=== PATIENT | female | born 1990 | race Caucasian/White ===

== ENCOUNTER → 2016-09-24 | Outpatient (CLI) | payer BC | END | disposition home or self-care (01) | LOC: C.PAPS 09:54 | PROVIDERS: ATTEND Obstetrics & Gynecology | DX: Z01.419 Encounter for gynecological examination (general) (routine) without abnormal findings (principal) ==

== ENCOUNTER 2018-10-27 00:54 | Inpatient (IN) ==
--- OUTSIDE RECORDS SUMMARY | 2018-10-27 01:01 | External Medical Summary | Continuity of Care Document ---
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) Palpitations (785.1) (R00.2) Decreased movement, antepartum (655.73) (O36.8190) Post term over 40 weeks (645.10) (O48.0) Encounter for supervision of normal prim igravida in third trimester, antepartum (V22.0) (Z34.03) Allergies and Adverse Reactions No Known Drug Allergies (Allergy) Medications Tylenol 500 MG CAPS Refills: 0 Vitamin TABS Refills: 0 Procedures Non-stress test Date: 22-Oct-2018 Immunizations Tdap (Adacel) On: 02-Aug-2018 16:39 Lot #: [id number], [employer] Family History Mother Family history of Hypertension (V17.49) Status: Active Grandmother Family history of Systemic Lupus Erythematosus Status: Activ e Family history of Hypertension (V17.49) Status: Active Family history of Heart Disease (V17.49) Status: Active Grandfather Family history of Lung Cancer (V16.1) Status: Active Grandfather Family history of Heart Disease (V17.49) Status: Active Plan of Treatment Planned Encounters Appointment; Surekha Villegas M.D. Start: 29-Oct-2018 14:30 Request Planned Observations Planned Goals not documented Results Non-stress test (Pending) Laboratory: In House 22-Oct-2018 14:33 Non-Stress Test Reactive Vital Signs 26-Oct-2018 13:48 Systolic 124 mm[Hg] Diastolic 82 mm[Hg] Weight 209.4 lb Height 65 in BSA Calculated 2.02 m2 BMI Calculated 34.85 kg/m2 22-Oct-2018 14:20 Systolic 110 mm[Hg] Diastolic 82 mm[Hg] Weight 205 lb Height 65 in BSA Calculated 2 m2 BMI Calculated 34.11 kg/m2 15-Oct-2018 15:12 Systolic 118 mm[Hg] Diastolic 86 mm[Hg] Weight 203.375 lb Height 65 in BSA Calculated 1.99 m2 BMI Calculated 33.84 kg/m2 05-Oct-2018 16:11 Systolic 120 mm[Hg] Diastolic 74 mm[Hg] Weight 201.25 lb Height 65 in BSA Calculated 1.98 m2 BMI Calculated 33.49 kg/m2 27-Sep-2018 15:59 Systolic 124 mm[Hg] Diastolic 78 mm[Hg] Weight 198.4 lb Height 65 in BSA Calculated 1.97 m2 BMI Calculated 33.02 kg/m2 Encounters Appointment; Juan David Arriaga M.D. 26-Oct-2018 13:40 Encounter Diagnosis: Problem not documented Appointment; Dixie Bo M.D. 22-Oct-2018 14:30 Encounter Diagnosis: Problem not documented Appointment; OB SC1, Nonstress Test 22-Oct-2018 14:00 Encounter Diagnosis: Problem not documented Appointment; Surekha Villegas M.D. 15-Oct-2018 15:10 Encounter Diagnosis: Problem not documented Appointment; Elida Leam M.D. 05-Oct-2018 16:10 Encounter Diagnosis: Problem not documented Appointment; Edita Marrero M.D. 27-Sep-2018 16:10 Encounter Diagnosis: Problem not documented Appointment; OB SC1, Nonstress Test 20-Sep-2018 13:15 Encounter Diagnosis: Problem not documented Appointment; Antoinette Wall M.D. 13-Sep-2018 16:20 Encounter Diagnosis: Problem not documented Appointment; Elida Lema M.D. 30-Aug-2018 15:50 Encounter Diagnosis: Problem not documented Appointment; Dixie Bo M.D. 17-Aug-2018 16:30 Encounter Diagnosis: Problem not documented Appointment; Sima Gage DO 02-Aug-2018 16:30 Encounter Diagnosis: Problem not documented Appointment; Dixie Bo M.D. 01-Jul-2018 16:30 Encounter Diagnosis: Problem not documented Appointment; Carlos Alberto Finn M.D. 03-Jun-2018 15:20 Encounter Diagnosis: Problem not documented Appointment; OBGYN SC2, Ultrasound 03-Jun-2018 14:30 Encounter Diagnosis: Problem not documented Appointment; Sima Gage DO 11-May-2018 15:20 Encounter Diagnosis: Problem not documented Appointment; Juan David Arriaga M.D. 03-May-2018 11:20 Encounter Diagnosis: Problem not documented Appointment; Carlos Alberto Finn M.D. 27-Apr-2018 14:20 Encounter Diagnosis: Problem not documented Appointment; OBGYN SC2, Ultrasound 27-Apr-2018 13:30 Encounter Diagnosis: Problem not documented Appointment; Sima Gage DO 13-Apr-2018 16:10 Encounter Diagnosis: Problem not documented Appointment; OB SC1, Procedure Rm 17-Mar-2018 15:30 Encounter Diagnosis: Problem not documented Appointment; Dixie Bo M.D. 17-Mar-2018 15:30 Encounter Diagnosis: Problem not documented Appointment; OB SC1, Nursing Station 10-Mar-2018 15:00 Encounter Diagnosis: Problem not documented Appointment; EMERGENCY MAN SC1, Nursing Station 14-Jan-2018 9:30 Encounter Diagnosis: Problem not documented Appointment; EMERGENCY MAN SC1, Nursing Station 17-Dec-2017 9:00 Encounter Diagnosis: Problem not documented Appointment; Amber Peralta M.D. 03-Dec-2017 13:30 Encounter Diagnosis: Problem not documented Appointment; Surekha Villegas M.D. 29-Oct-2018 14:30 Encounter Diagnosis: Problem not documented
[2018-10-27] MEDS ORDERED: OXYTOCIN 30 UNITS/500 ML BAG IV PRN ×3 (02:10→16:26)
[2018-10-27] MEDS ORDERED: LACTATED RINGER'S 1,000 ML IV PRN ×2 (02:10→11:03)
[2018-10-27] MEDS ORDERED: PENICILLIN G POTASSIUM 6 MU in DEXTROSE 5% 250 ML IV ONE (02:30)
[2018-10-27 02:44] LABS: Hematocrit (blood only) 34.6 % (37-47); Hemoglobin 11.6 g/dL (12.0-16.0); Mean Corpuscular Volume 83.4 fL (80-100); Mean Platelet Volume 10.2 fL (7.4-10.4); Platelet Count 232 K/uL (130-400); RDW Coefficient of Variation 14.9 % (11.5-14.5); Red Blood Count 4.15 M/uL (4.2-5.4); White Blood Count 16.62 K/uL (4.8-10.8)
[2018-10-27 02:55] LABS: Mean Corpuscular Hgb Conc 33.5 g/dL (32-36)
[2018-10-27] MEDS: PENICILLIN G POTASSIUM 3 MU in DEXTROSE 5% 100 ML IV SCH ×3 (06:46→14:26)
--- NOTE | 2018-10-27 07:13 | Labor Progress Brief Note ---
Date of Service October 27, 2018 Subjective Patient seen at 7am. Tolerating contraction pain, declines epidural. Assessment & Plan (1) Normal labor and delivery: Spontaneous labor, post term . GBS pos - PCN x2 now given. SROM and labor progressing without augmentation and patient declines anesthesia. Anticipate . Present on Admission?: Yes Physical Exam Physical Exam: FHT Cat 1 [place] Q2-4m Per RN: SROM for clear recently occurred during emesis. Cervix 8/100/0. Results & Data Vital Signs (Past 12 Hours) Vital Signs Temp Pulse Resp BP 10/27/18 07:00 36.8 C 18 10/27/18 03:31 36.8 C 92 H 16 137/88 10/27/18 01:39 99 H 130/91 10/27/18 01:16 36.6 C 85 18 140/88 10/27/18 01:08 36.6 C 85 18 140/88
--- NOTE | 2018-10-27 11:49 | Obstetrical Progress Note ---
Date of Service October 27, 2018 Subjective Patient had complained of right calf soreness this morning. A venous doppler shows a superficial thrombosis - 4cm in size & not near the deep venous system. Patient states she has varicose veins present prior to . Both parents have varicose veins and her mother had been treated for a DVT with coumadin in the past. Apparently there is no genetic source for the DVT. Review of Systems Review of Systems: All systems reviewed & are unremarkable except as noted in HPI & below Physical Exam Musculoskeletal: tender 2 cm mass in medial calf - no obvious redness in the area. (+) Tammy's sign Results & Data Vital Signs (Past 12 Hours) Vital Signs Temp Pulse Resp BP 10/27/18 11:12 98.4 F 18 10/27/18 11:11 97 H 147/93 H 10/27/18 09:07 98.4 F 18 10/27/18 07:00 98.2 F 18 10/27/18 03:31 98.2 F 92 H 16 137/88 10/27/18 01:39 99 H 130/91 10/27/18 01:16 97.9 F 85 18 140/88 10/27/18 01:08 97.9 F 85 18 140/88
[2018-10-27] MEDS: LACTATED RINGER'S 1,000 ML IV SCH ×2 (11:55→16:45)
[2018-10-27] MEDS ORDERED: ACETAMINOPHEN 325 MG TAB PO PRN (16:26)
[2018-10-27] MEDS ORDERED: HYDROCORTISONE ACETATE 25 MG SUPP PR PRN (16:26)
[2018-10-27] MEDS ORDERED: BENZOCAINE 20% AER SPR 82.5 GM CAN EXT PRN (16:26)
[2018-10-27] MEDS ORDERED: DIPHTHERIA/TETANUS/PERTUSSIS 0.5 ML SYR/VIAL IM ONE (16:26)
[2018-10-27] MEDS ORDERED: SUPERCREAM 0.870% 15 GM JAR EXT PRN (16:26)
[2018-10-27] MEDS ORDERED: OXYTOCIN 10 UNITS/ML VIAL IM ONE (16:41)
[2018-10-27] MEDS: IBUPROFEN 600 MG TAB PO PRN (18:16)
[2018-10-27] MEDS: DOCUSATE SODIUM 100 MG CAP PO SCH (20:57)
--- NOTE | 2018-10-27 23:22 | Delivery Summary ---
DATE OF OPERATION: 10/27/2018 DATE OF DELIVERY: 10/27/2018 The patient is a 27-year-old G1, P0 white female who presented in labor spontaneously. Membranes ruptured for clear fluid. She is Group B strep positive and received 3 doses of penicillin prior to delivery. She required Pitocin augmentation after arresting at approximately 8 cm dilated. She progressed to full dilation and pushed effectively over a very small midline episiotomy for delivery of a viable male . Mouth and nasopharynx were suctioned on delivery of the head. The rest of the delivered easily and was placed on the mother's abdomen for further attention and drying. There was spontaneous crying and infant was moving all 4 limbs vigorously. The cord was then clamped and cut after 1 minute and after the cord had stopped pulsing. The placenta was then expressed intact with 3-vessel cord. A second degree perineal laceration was repaired with 3-0 chromic in the usual fashion. Estimated blood loss was 350 mL. Mother and were doing well after delivery. bleeding was controlled with dilute Pitocin. I attest to the content of the Intraoperative Record and any orders documented therein. Any exception s are noted below.
--- NOTE | 2018-10-28 06:56 | Obstetrical Progress Note ---
Date of Service October 28, 2018 Assessment & Plan (1) Status post vaginal delivery: Patient is a 27 year old PPD 1 s/p -Vital signs WNL bp 106/66 T36.5, -Hemoglobin was 11.6 on admission. no si/sx of anemia. -Pt is doing clinically well -Continue to encourage ambulation as tolerated, Monitor and control pain with motrin prn, Continue diet as tolerated. -Continue to support and encourage breast feeding -Routine care Supervising Physician Co-Signing Physician Notes Resident Physician Supervision Note: I interviewed and examined the patient. Discussed with Dr. Deng Brasher and lennox oswald with findings and plan as documented in the note. Any exceptions or clarifications are listed here: [None] Documented By: Antoinette Wall MD, FACOG Subjective Patient siting up in bed with baby in her arms and dad across the room resting on the chair bed. Patient did well overnight, reports she is starting to feel sore muscles. Patient is tolerating her diet, ambulating, passing gas and voiding, still no bm. Reports moderate lochia. Denies H/A, chest pain, palpitations and uti syx. Answered all questions, no concerns at present, pain is well controlled Physical Exam Physical Exam: Constitutional: WD/WN, vitals as above no acute distress Eyes: normal visual gordon by confrontation Neck: normal visual inspection Respiratory: normal respiratory effort, lungs clear to auscultation Cardiovascular: RRR, no murmur, no edema Heart Sounds: normal S1 and normal S2 Extremities: no calf tenderness Gastrointestinal (Abdomen): Uterus firm and below the umbilicus Results & Data Vital Signs (Past 12 Hours) Vital Signs Temp Pulse Resp BP Pulse Ox 10/28/18 04:35 36.5 C 94 H 18 106/66 10/27/18 23:55 36.8 C 110 H 18 121/65 10/27/18 20:30 36.4 C L 92 H 20 96/70 L 98 Medications Administered Current Inpatient Medications Acetaminophen (Tylenol) 650 mg PO Q6H PRN PRN Reason: Pain/ANDRE/Fever Stop: 11/26/18 16:25 Last Admin: 10/27/18 21:23 Dose: 650 mg Documented by: Benzocaine (Dermoplast Pain Relieving [place]) 1 appln EXT PRN PRN PRN Reason: Perineal Discomfort Stop: 11/26/18 16:25 Bisacodyl (Dulcolax) 5 mg PO 2000 [facility] Stop: 10/28/18 20:01 Bisacodyl (Dulcolax) 10 mg NH DAILY PRN PRN Reason: No BM on 2nd post- day Stop: 11/28/18 08:59 Cocaine HCl (Supercream 0.870%) 1 gm EXT BID PRN PRN Reason: Hemorrhoidal Inflammation Stop: 11/10/18 16:25 Docusate Sodium (Colace) 100 mg PO BID [facility] Stop: 11/26/18 20:59 Last Admin: 10/27/18 20:57 Dose: Not Given Documented by: Hydrocortisone (Anusol Hc) 25 mg [place] BID PRN PRN Reason: Hemorrhoidal Inflammation Stop: 11/26/18 16:25 Lactated Ringer's (Lr) 1,000 mls @ 125 mls/hr IV .Q8H [facility] Stop: 10/29/18 02:14 Last Admin: 10/27/18 16:45 Dose: Not Given Documented by: Oxytocin (Pitocin) 30 units in 500 mls @ 333.333 mls/hr IV .Q1H30M PRN; Protocol PRN Reason: Bleeding Control Stop: 11/26/18 02:09 Lactated Ringer's (Lr) 1,000 mls @ 999 mls/hr IV .Q1H1M PRN PRN Reason: Pre-Anesthesia Stop: 11/26/18 02:09 Last Infusion: 10/27/18 08:10 Dose: 0 mls/hr Documented by: Oxytocin (Pitocin) 30 units in 500 mls @ 333 mls/hr IV .Q1H31M PRN; Protocol PRN Reason: Labor Induction/Augmentation Stop: 10/29/18 11:02 Last Titration: 10/27/18 18:52 Dose: Infused Documented by: Lactated Ringer's (Lr) 1,000 mls @ 999 mls/hr IV .Q1H1M PRN PRN Reason: Tachysystole Stop: 10/29/18 11:02 Oxytocin (Pitocin) 30 units in 500 mls @ 333.333 mls/hr IV .Q1H30M PRN; Protocol PRN Reason: Bleeding Control Stop: 11/26/18 16:25 Ibuprofen (Motrin) 600 mg PO Q4H PRN PRN Reason: Pain/ANDRE/Cramping/Fever Stop: 11/26/18 16:25 Last Admin: 10/27/18 18:16 Dose: 600 mg Documented by: Pham Multivit/Pope/Iron/Folic Ac ( Vitamin) [facility] Stop: 11/27/18 08:59 Resident Activity Tracking Resident Involvement: Resident Care Provided Care Provided: Adult Hospital Medicine
[2018-10-28 07:31] LABS: Hematocrit (blood only) 25.6 % (37-47); Hemoglobin 8.7 g/dL (12.0-16.0); Mean Corpuscular Volume 81.8 fL (80-100); Mean Platelet Volume 9.6 fL (7.4-10.4); Platelet Count 224 K/uL (130-400); RDW Coefficient of Variation 15.4 % (11.5-14.5); RDW Standard Deviation 44.8 fL (36.4-46.3); Red Blood Count 3.13 M/uL (4.2-5.4); White Blood Count 22.53 K/uL (4.8-10.8)
[2018-10-28] MEDS: DOCUSATE SODIUM 100 MG CAP PO SCH ×2 (08:31→20:07)
[2018-10-28] MEDS: PRENATAL VITAMIN 1 TAB PO SCH (08:31)
[2018-10-28] MEDS: IBUPROFEN 600 MG TAB PO PRN ×2 (10:32→23:51)
[2018-10-28] MEDS ORDERED: BISACODYL 5 MG TABEC PO SCH (20:00)
[2018-10-29 06:43] LABS: Hematocrit (blood only) 24.7 % (37-47); Hemoglobin 8.1 g/dL (12.0-16.0)
--- NOTE | 2018-10-29 07:07 | Obstetrical Progress Note ---
Date of Service October 29, 2018 Assessment & Plan (1) Status post vaginal delivery: Patient is a 27 year old PPD 2 s/p -Vital signs WNL bp 121/71 T36.8, -Hemoglobin is 8.7 on ppd1 down from 11.6 on admission. no si/sx of anemia. -Pt is doing clinically well -Continue to encourage ambulation as tolerated, Monitor and control pain with motrin prn, Continue diet as tolerated. -Continue to support and encourage breast feeding -Counseled patient on discharge instructions including Vaginal bleeding, fevers, followup, lifting restrictions, breast feeding, vitamins, and nothing in the vagina for 6 weeks. Pt was agreeable -Plan for d/c today Supervising Physician Co-Signing Physician Notes Resident Physician Supervision Note: I was present with Dr. Brasher during the history and exam. I discussed the case with the resident and agree with the findings and plan as documented in the note. Any exceptions or clarifications are listed here: Patient requesting d/c, instructions given. F/U in 6 weeks Documented By: Carlos Alberto Finn Jr, MD, FACOG Subjective Pt sitting up in bed with dad sleeping in the chair across the room. no acute events overnight. Patient is tolerating her diet, ambulating, passing gas and voiding, positive bm some diarrhea. Reports moderate lochia. Denies H/A, chest pain, palpitations and uti syx. Answered all questions, no concerns at present, pain is well controlled Physical Exam Physical Exam: Constitutional: WD/WN, vitals as above no acute distress Eyes: normal visual gordon by confrontation Neck: normal visual inspection Respiratory: normal respiratory effort, lungs clear to auscultation Cardiovascular: RRR, no murmur, no edema Heart Sounds: normal S1 and normal S2 Extremities: no calf tenderness Gastrointestinal (Abdomen): Uterus firm and below the umbilicus Results & Data Vital Signs (Past 12 Hours) Vital Signs Temp Pulse Resp BP Pulse Ox 10/28/18 23:30 36.8 C 80 18 121/71 96 Resident Activity Tracking Resident Involvement: Resident Care Provided Care Provided: Adult Hospital Medicine
[2018-10-29] MEDS: DOCUSATE SODIUM 100 MG CAP PO SCH (08:11)
[2018-10-29] MEDS: PRENATAL VITAMIN 1 TAB PO SCH (08:11)
[2018-10-29] MEDS ORDERED: BISACODYL 10 MG SUPP PR PRN (09:00)
== END 2018-10-29 15:15 | disposition home or self-care (01) | DRG 807 ==
LOC: OPB 00:54 → 4S1 00:59 → 4S2 20:25

== ENCOUNTER 2020-10-15 09:05 | Inpatient (IN) ==
[2020-10-15] MEDS ORDERED: LACTATED RINGER'S 1,000 ML IV PRN (09:26)
[2020-10-15] MEDS ORDERED: OXYTOCIN 30 UNITS/500 ML BAG IV PRN ×2 (09:26→18:38)
[2020-10-15 09:47] LABS: Hematocrit (blood only) 39.2 % (37-47); Hemoglobin 13.2 g/dL (12.0-16.0); Mean Corpuscular Hemoglobin 29.5 pg (25-34); Mean Corpuscular Hgb Conc 33.7 g/dL (32-36); Mean Corpuscular Volume 87.5 fL (80-100); Mean Platelet Volume 9.9 fL (7.4-10.4); Platelet Count 214 K/uL (130-400); RDW Coefficient of Variation 13.8 % (11.5-14.5); Red Blood Count 4.48 M/uL (4.2-5.4); White Blood Count 13.08 K/uL (4.8-10.8)
[2020-10-15] MEDS: miSOPROStoL 25 MCG TAB PV SCH ×2 (09:51→15:42)
--- NOTE | 2020-10-15 10:07 | History & Physical Report ---
Date of Service October 15, 2020 Assessment & Plan (1) Encounter for supervision of normal in multigravida: Admit to L&D. Labs, EFM/toco, IV. Covid swab per L&D admission protocol. Discussed induction plans - placed 25mcg of cytotec vaginally. Membrane sweep prior to placement per patient request. Admission and Anticipated Discharge Date Admission Date: October 15, 2020 History of Present Illness Chief Complaint: IOL Primary Care Provider: Isrrael Castro 29yo @ 40 06/28, presents for IOL with Dr Arriaga. complications: Flu shot given 04/05/20 SB Right club Foot (MFM) apt [facility] MFM 07/04/20 u/s, 07/10/20 telehealth visit Borderline renal dilatation. Rescan at 30 weeks *MFM aware - 5.6mm at most at 30wk. Male fetus. *rescan @ 32wks and 36wks. *if greater than 7mm need to discuss with MFM *Left renal pelvis 12.4 @ 36wks. MFM recs weekly DVP's Per MFM, patient may deliver here, will need pediatric urology consult after delivery consult request sent to Peds urology at [facility] *Peds hospitalist ok with delivery at [facility] Induction 10/[address] Arriaga Allergies Allergy/AdvReac Type Severity Reaction Status Date / Time No Known Drug Allergies Allergy no Verified 10/15/20 09:22 allergies Home Medications Medication Instructions Recorded Confirmed Type acetaminophen 500 mg capsule 650 mg PO Q6 PRN 03/02/20 10/15/20 History prenat.vits,lorena,[id number] 1 tab PO DAILY 03/02/20 10/15/20 History Patient History Medical History History of ovarian cyst ruptured- no surgery Palpitations cardiac eval 04/28/2018; echo- small PFO Surgical History History of mandibular surgery Family History Grandmother (Maternal) Heart disease CHF; pacemaker Hypertension Systemic lupus erythematosus Grandfather (Paternal) Heart disease h/o CAD, CABG, in 60's when chopping wood Mother Hypertension Grandfather (Maternal) Lung cancer Father Heart disease NSTEMI, age 62, 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[employer]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 [employer] of [employer] Prostate cancer Social History (Updated 03/06/20 @ 13:42 by Tran Mora) Smoking Status: Never smoker Second Hand Exposure: No; Hx Alcohol Use: No Hx Substance Use: No Preferred Language: Sami Communication Ability: Effective Gear Technician Required: No Beliefs That Will Affect Care: None marital status: marital status details: Bc (32 yo)- [phone] Current Living Situation: Spouse Current Living Situation Comment: Spouse and son, 1 dog current occupational status: employed 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- [employer] Other Information That Helps Us Care for You: No Feels Safe at Home: Yes Safety Concerns: Feels Safe At This Time Assistive Devices: None Review of Systems All systems reviewed & are unremarkable except as noted in HPI & below Physical Exam Physical Exam: SVE 2/80/-3 FHT Cat 1 [place] rare Constitutional: WD/WN, vitals as above Respiratory: normal respiratory effort, lungs clear to auscultation no respiratory distress Cardiovascular: Rate/Rhythm: regular rate and regular rhythm Gastrointestinal (Abdomen): Inspection/Auscultation: abdomen normal to inspection Percussion/Palpation: abdomen soft; abdomen nontender Gravid. No s/s chorio or abruption. Skin: no rashes, warm and dry Psychiatric: A+Ox3, euthymic affect Results & Data ([facility]) Vital Signs (Past 12 Hours) Vital Signs Temp Pulse Resp BP 10/15/20 09:19 36.4 C L 116 H 18 123/74 10/15/20 09:12 116 H 123/74 Coding Level of Care Code None Diagnoses Encounter for supervision of normal in multigravida Z34.80
--- NOTE | 2020-10-15 13:58 | Labor Progress Brief Note ---
Date of Service October 15, 2020 Subjective Reason For Note: Routine Evaluation Assessment & Plan (1) Encounter for supervision of normal in multigravida: 29yo at 40.1 weeks GA. IOL 1. Fetus: Cat 1 2. Labor: s/p Cytotec. AROM clr. 3. GBS: Negative Admission and Anticipated Discharge Date Admission Date: October 15, 2020 Physical Exam Genitourinary: Manual OB Exam: + cervical dilation 3 cm, + cervical effacement 80%, + station -2 and + amniotic fluid (AROM) clear OB Exam Monitor Tracing: + external FHT monitor used, + external uterine monitor used, + category I and + normal FHT variability; no early decelerations present, no late decelerations present and no variable decelerations Results & Data ([facility]) Vital Signs (Past 12 Hours) Vital Signs Temp Pulse Resp BP 10/15/20 10:59 36.6 C 88 18 128/71 10/15/20 09:19 36.4 C L 116 H 18 123/74 10/15/20 09:12 116 H 123/74 Coding Level of Care Code None Diagnoses Encounter for supervision of normal in multigravida Z34.80
[2020-10-15] MEDS ORDERED: LIDOCAINE HCL 1% 20 ML VIAL ONE (17:19)
[2020-10-15] MEDS ORDERED: miSOPROStoL 200 MCG TAB ONE (18:31)
[2020-10-15] MEDS ORDERED: IBUPROFEN 600 MG TAB PO PRN (18:38)
[2020-10-15] MEDS ORDERED: SUPERCREAM 0.870% 15 GM JAR EXT PRN (18:38)
[2020-10-15] MEDS ORDERED: BENZOCAINE 20% AER SPR 82.5 GM CAN EXT PRN (18:38)
[2020-10-15] MEDS ORDERED: DIPHTHERIA/TETANUS/PERTUSSIS 0.5 ML SYR/VIAL IM ONE (18:38)
[2020-10-15] MEDS ORDERED: bisacodyL 10 MG SUPP PR PRN (18:38)
[2020-10-15] MEDS ORDERED: HYDROCORTISONE ACETATE 25 MG SUPP PR PRN (18:38)
[2020-10-15] MEDS ORDERED: ACETAMINOPHEN 325 MG TAB PO PRN (18:38)
[2020-10-15] MEDS ORDERED: miSOPROStoL 100 MCG TAB PR ONE (18:38)
[2020-10-15] MEDS ORDERED: LACTATED RINGER'S 1,000 ML IV SCH (18:38)
[2020-10-15] MEDS: DOCUSATE SODIUM 100 MG CAP PO SCH (21:57)
--- NOTE | 2020-10-16 04:53 | Delivery Summary ---
DATE OF OPERATION: 10/15/2020 PROCEDURE: Normal spontaneous vaginal delivery with second-degree perineal and bilateral labial laceration repair. SURGEON: Juan David Arriaga MD OPERATIONS FORESTER: Nancy Mead, PGY-1. PREOPERATIVE DIAGNOSES: 1. Single intrauterine at 40 weeks 1 day gestational age. 2. Severe left pyelectasis. 3. clubfoot. POSTOPERATIVE DIAGNOSES: 1. Single intrauterine at 40 weeks 1 day gestational age. 2. Severe left pyelectasis. 3. clubfoot. 4. Status post procedure. ESTIMATED BLOOD LOSS: 400 mL. DRAINS: None. FLUIDS: Continuous lactated Ringer. URINE OUTPUT: Not measured. COMPLICATIONS: None. FINDINGS: Viable male with weight pending and Apgars of 8 and 9 at 1 and 5 minutes respectively. INDICATIONS FOR PROCEDURE: The patient presented for induction of labor at 40 weeks 1 day gestational age for severe pyelectasis. At presentation, she was found to be 2 cm dilated, 80% effaced, -2 station. She was started on a single dose of Cytotec. After Cytotec, she underwent artificial rupture of membranes for clear fluid. She progressed in labor quickly to complete-complete +2 and pushed for approximately 15-20 minutes to achieve delivery. DESCRIPTION OF PROCEDURE: The patient progressed to 10 cm dilated, 100% effaced, +2 station, pushed over intact perineum with epidural anesthesia and delivered a viable male infant with weight and Apgars as noted above. Head of delivered in MARCELINO position, rest into right transverse. No nuchal cord was noted. Body and shoulders quickly followed. was noted to be vigorous soon after delivery. A 1-minute delayed cord clamping was initiated, after which the cord was double clamped and cut. Cord blood was obtained. Attention was then turned to delivery of the placenta, which was delivered intact, 3-vessel cord, gentle cord traction. On inspection of the perineum, vagina, and cervix, there was noted to be a small second-degree perineal laceration and bilateral labial lacerations that extended from the second-degree laceration. The perineal laceration was repaired with 3-0 Vicryl and continuous stitch, traditional crown stitch. The bilateral labial lacerations were repaired down towards the level of the second-degree laceration with 3-0 Vicryl in an interrupted stitch. Needle, sponge and instrument counts were correct at the completion of the case. Both mother and were stable in the immediate post-delivery period. I attest to the content of the Intraoperative Record and any orders documented therein. Any exception s are noted below.
[2020-10-16 06:20] LABS: Hematocrit (blood only) 35.9 % (37-47); Hemoglobin 12.1 g/dL (12.0-16.0); Mean Corpuscular Hemoglobin 29.5 pg (25-34); Mean Corpuscular Hgb Conc 33.7 g/dL (32-36); Mean Corpuscular Volume 87.6 fL (80-100); Platelet Count 195 K/uL (130-400); RDW Coefficient of Variation 13.9 % (11.5-14.5); RDW Standard Deviation 43.7 fL (36.4-46.3); White Blood Count 17.43 K/uL (4.8-10.8)
[2020-10-16] MEDS ORDERED: PRENATAL VITAMIN 1 TAB PO SCH (08:00)
--- NOTE | 2020-10-16 08:07 | Obstetrical Progress Note ---
Date of Service <Diego Minor MD - Last Filed: 10/16/20 08:07> October 16, 2020 Assessment & Plan <Diego Minor MD - Last Filed: 10/16/20 08:07> (1) Encounter for supervision of normal in multigravida: A/P: Daysi Truong is a 29 y/o female on PPD#1 following at 40+1 weeks. * Patient feels well today; eating well, voiding well, ambulating well * Pain well-controlled with ibuprofen 600mg q4h prn * PNL: Rh neg, RI, GBS neg, COVID neg * Routine care: OOB, ambulation, diet progression as tolerated * After discharge, will have six-week follow-up with Dr. Arriaga Subjective <Diego Minor MD - Last Filed: 10/16/20 08:07> Daysi Truong is a 29 y/o female on PPD#1 following at 40+1 weeks. This morning she reports feeling well overall. Reports mild, 2/10 crampy abdominal pain well-managed on analgesics. Tolerating PO intake without nausea or vomiting. Patient has been able to ambulate without lightheadedness or dizziness. Reports voiding well without difficulty. Lochia continues, though with some improvement this morning. Currently . Review of Systems Denies fever, chills, CP, SOB, cough, breast pain, dysuria, leg pain, leg swelling, headache, and changes in vision. Physical Exam <Diego Minor MD - Last Filed: 10/16/20 08:07> General: alert, oriented, no acute distress Cardiac: regular rate and rhythm, no murmurs appreciated Respiratory: lungs clear to auscultation bilaterally a/p, no wheezes/rales/rhonchi, no increased work of breathing, symmetrical chest rise, no respiratory distress Abdomen: soft, minimally tender, nondistended, bowel sounds present Uterus: uterine fundus firm, palpable 3 cm below umbilicus Lower extremities: no lower extremity edema or swelling, no deep calf pain, Tammy's negative bilaterally Results & Data ([facility]) <Diego Minor MD - Last Filed: 10/16/20 08:07> Vital Signs (Past 12 Hours) Vital Signs Temp Pulse Pulse Resp BP BP Pulse Ox 10/16/20 08:00 36.6 C 94 H 18 115/80 96 10/16/20 03:40 36.7 C 87 18 108/70 10/16/20 00:20 36.9 C 103 H 18 118/74 10/15/20 21:30 36.4 C L 99 H 18 127/78 10/15/20 20:55 37.1 C 10/15/20 20:44 107 H 141/81 H 10/15/20 20:29 125 H 18 135/71 10/15/20 20:14 121 H 132/66 <Juan David Arriaga MD - Last Filed: 10/16/20 08:17> Co-Signing Physician Notes Patient seen and evaluated and agree with the above findings and plan. Doing well. Stable for discharge. Resident Activity Tracking <Diego Minor MD - Last Filed: 10/16/20 08:07> Resident Involvement: Resident Care Provided Care Provided: OB Delivery
[2020-10-16] MEDS: DOCUSATE SODIUM 100 MG CAP PO SCH (08:48)
[2020-10-16] MEDS ORDERED: NON-FORMULARY MEDICATION (Prenat.Vits,Cal,Min-Iron-Folic tablet) PO SCH (09:00)
[2020-10-16] MEDS ORDERED: bisacodyL 5 MG TABEC PO SCH (20:00)
== END 2020-10-16 19:35 | disposition home or self-care (01) | DRG 807 ==
LOC: 4S1 09:05 → 4S2 21:21

== ENCOUNTER 2021-06-30 10:54 | Inpatient (IN) ==
[2021-06-30] MEDS ORDERED: METOCLOPRAMIDE HCL INJ 5 MG/ML 2 ML VIAL IV ONE (11:16)
[2021-06-30 11:29] LABS: Basophils # (auto) 0.06 K/uL (0-0.2); Eosinophils # (auto) 0.22 K/uL (0-0.5); Eosinophils % (auto) 3.7 %; Hematocrit (blood only) 38.7 % (37-47); Hemoglobin 12.8 g/dL (12.0-16.0); Lymphocytes # (auto) 2.53 K/uL (1.2-3.4); Mean Corpuscular Hemoglobin 29.1 pg (25-34); Mean Corpuscular Hgb Conc 33.1 g/dL (32-36); Monocytes # (auto) 0.49 K/uL (0.11-0.59); Monocytes % (auto) 8.3 %; Neutrophils # (auto) 2.58 K/uL (1.4-6.5); Platelet Count 230 K/uL (130-400); RDW Coefficient of Variation 12.5 % (11.5-14.5); RDW Standard Deviation 40.3 fL (36.4-46.3); White Blood Count 5.88 K/uL (4.8-10.8)
[2021-06-30 11:46] LABS: Alanine Aminotransferase 16 (12-78); Albumin Level 3.8 gm/dl (3.4-5.0); Aspartate Aminotransferase 13 U/L (15-37); BUN Creatinine Ratio 17.5 (10-20); Blood Urea Nitrogen 11 mg/dl (7-18); Calcium 8.9 mg/dl (8.5-10.1); Carbon Dioxide 25 mmol/L (21-32); Chloride 106 mmol/L (98-107); Creatinine Clr Calc Pharmacy 127.7 ml/min; Est GFR (African American) 138.8 ml/min; Est GFR (Non-African American) 119.7 ml/min; Glucose 84 mg/dl (70-99); Magnesium 1.9 mg/dl (1.8-2.4); Potassium 4.3 mmol/L (3.5-5.1); Sodium 139 mmol/L (136-145)
[2021-06-30 11:56] LABS: Albumin Globulin Ratio 1.2 (0.9-2); Alkaline Phosphatase 88 U/L (45-117); Bilirubin,Total 0.5 mg/dl (0.2-1); Globulin 3.3 gm/dl (2.5-4.0); Total Protein 7.1 gm/dl (6.4-8.2); Troponin I < 0.015 ng/ml (0-0.045)
--- NOTE | 2021-06-30 12:25 | Magnetic Resonance Report ---
Brain MRI WITHOUT CONTRAST HISTORY: transient aphasia, left numbness/weakness TECHNIQUE: Multiplanar multisequence MRI of the brain was performed without the use of contrast. COMPARISON STUDY: None. FINDINGS: There is a small foci of restricted diffusion seen within the high convexity right frontal lobe on images 19 and 20 measuring 9 mm. This is consistent with a small acute infarct. The midline s tructures are intact. There is no mass, hematoma, midline shift. The major vascular flow-voids at the skull base are well-maintained. The orbits are unremarkable. Small retention cyst within the right s phenoid sinus and left maxillary sinus. The mastoid air cells are clear. IMPRESSION: A 9 mm focus of restricted diffusion within the right high convexity consistent with a small acute in farct. ACT 112: Negative or not required by law. Electronically signed by: Jayesh Parra M.D. 06/30/2021 12:24 PM
--- NOTE | 2021-06-30 12:27 | Magnetic Resonance Report ---
Brain MRA HISTORY: Transient aphasia, left numb/weak TECHNIQUE: 3-D [id number] MRA of the brain was performed without contrast. COMPARISON STUDY: None. FINDINGS: Visualized intracranial internal carotid arteries, distal vertebral arteries, and basilar a rtery are widely patent. There is no significant stenosis, occlusion, or aneurysm seen within the patri[place] ateral ACAs, MCAs, or morgue technician. IMPRESSION: No significant stenosis, occlusion, or aneurysm within the [place] of [place]. ACT 112: Negative or not required by law. Electronically signed by: Jayesh Parra M.D. 06/30/2021 12:25 PM
[2021-06-30] MEDS ORDERED: ASPIRIN 81 MG CHEW PO STA (12:57)
--- NOTE | 2021-06-30 13:18 | History & Physical Report ---
Date of Service June 30, 2021 Assessment & Plan (1) Small vessel cerebrovascular accident (CVA): Plan: This is a 30yo F with PMH of a small PFO who presents with sudden onset left sided weakness and speech abnormality starting around 10AM today and was found to have small acute infarct in the right high frontal convexity. Developed LUE weakness, dysarthria this morning that has since fully resolved. Brain MRI confirms a small acute infarct in the right high frontal convexity Head/neck MRA with no acute restrictions in the head vascular on MRA Given aspirin in ED Vital signs stable, labs unremarkable, covid PCR negative, ECG with SR with sinus arrhythmia, no acute ischemic changes Pending work up: BLE venous dopplers to r/o DVTs, hypercoagulability panel, TTE with bubble study Discussed with neuro - Dr. Iyer recommends dual antiplatelet therapy tomorrow, SQ heparin for VTE, no need for CT head wo con at this time Discussed with cards due to history of small PFO on previous echo - Dr. Sal recommends ongoing telemetry, plan for WHIT, will make NPO @ [facility] Lipid panel, a1c in AM, PT/OT/speech evaluations per protocol DVT Ppx: SQ heparin Code status: FULL PCP: Matthew (seen by Rayna on patient request) Dispo: Admitted to PCU Patient seen in collaboration with Dr. Storey. Please see addendum. History of Present Illness Chief Complaint: stroke like sx Primary Care Provider: Isrrael Castro This is a 30yo F with PMH of a small PFO who presents with sudden onset left sided weakness and speech abnormality starting around 10AM today. Patient woke in normal state of health and was talking on the phone when she developed numbness and weakness in left arm and dropped her cell phone out of left hand. Also endorses mild left leg weakness at this time as well as difficulty getting her words out and and a small left facial droop. Speech and facial droop resolved after one minute per and left sided weakness improved but continued to have intermittent numbness of LUE over the next 20 minutes. brought patient to ED for further evaluation. No issues ambulating to car or walking into ER. Had a small amount of tingling in left hand upon initial arrival as well as dizziness and mild headache but denies any speech or swallowing issues or weakness at this time. No calf pain or swelling in extremities. No fever, chills, chest pain, palpitations, SOB, vomiting, abdominal pain, dysuria, diarrhea or constipation. No medical history other than palpitations as a teenager and episode of chest pain while in 2018, prompting cardiac evaluation at that time by Dr. Fong. TTE from Apr 2018 normal except for possible small patent foramen ovale. No stroke history in family but history of CAD and lupus. Patient is 9 months post- with second child and is nursing. Non-smoker. Not on OCPs. No recent travel or illness. Allergies Allergy/AdvReac Type Severity Reaction Status Date / Time No Known Drug Allergies Allergy no Verified 06/30/21 13:02 allergies Home Medications Medication Instructions Recorded Confirmed Type No Known Home Medications 06/30/21 06/30/21 History Past Med/Surg History Medical History Abnormal ultrasound Encounter for anatomic survey History of ovarian cyst ruptured- no surgery Palpitations cardiac eval 04/28/2018; echo- small PFO Surgical History History of mandibular surgery Family History Grandmother (Maternal) Heart disease CHF; pacemaker Hypertension Systemic lupus erythematosus Grandfather (Paternal) Heart disease h/o CAD, CABG, in 60's when chopping wood Mother Hypertension Grandfather (Maternal) Lung cancer Father Heart disease NSTEMI, age 62, MAGAZINE WRITER OM branch of circumflex Prostate cancer Social History Smoking Status: Never smoker Second Hand Exposure: No; Hx Alcohol Use: No Hx Substance Use: No Preferred Language: Palestinian Communication Ability: Effective Supervisor Quilting Required: No Beliefs That Will Affect Care: None marital status: marital status details: Bc (32 yo)- [phone] Current Living Situation: Spouse Current Living Situation Comment: Spouse and 2 kids, 1 dog current occupational status: employed 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 Physical Exam Physical Exam: General Appearance: WD/WN, vitals as above, NAD, sitting up in bed, pleasant, conversing easily Head: normocephalic, atraumatic Eyes: normal inspection, PERRL, conjunctivae normal, anicteric sclerae ENT: external ear and nose normal, oropharynx normal Neck: normal visual inspection, trachea midline, no thyromegaly Respiratory: normal respiratory effort, lungs clear to auscultation, no wheeze, rales, rhonchi. No accessory muscle use Cardiovascular: regular rate, rhythm, no murmur, normal peripheral pulses, no BLE edema. Vessels: no JVD Chest: normal inspection of chest Abdomen/GI: normal bowel sounds, soft, nontender, no hepatosplenomegaly Extremities/Musculoskeletal: no cyanosis or clubbing, extremities motor strength 5/5 Neurologic: PERRL, EOMI, accommodation nl, no face palsy, no dysarthria, CN's II-XI intact bilaterally and moves all extremities, no ambulatory dysfunction Psychiatric: A+Ox3, euthymic affect Skin: no rashes, normal color, warm/dry Results & Data Results & Data ([facility]) Vital Signs (Past 12 Hours) Vital Signs Temp Pulse Pulse Resp BP BP Pulse Ox 06/30/21 12:55 88 18 139/85 97 06/30/21 11:25 100 06/30/21 10:56 36.6 C 78 18 141/78 H 100 Laboratory Results Short CBC 06/30/21 Range/Units 11:20 WBC 5.88 (4.8-10.8) K/uL Hgb 12.8 (12.0-16.0) g/dL Hct 38.7 (37-47) % Plt Count 230 (130-400) K/uL BMP 06/30/21 11:20 Sodium 139 Potassium 4.3 Chloride 106 Carbon Dioxide 25 BUN 11 Creatinine 0.64 Glucose 84 Calcium 8.9 Cardiac Enzymes 06/30/21 Range/Units 11:20 Troponin I < 0.015 (0-0.045) ng/ml Liver Function 06/30/21 Range/Units 11:20 Total Bilirubin 0.5 (0.2-1) mg/dl AST 13 L (15-37) U/L ALT 16 (12-78) Alkaline Phosphatase 88 (45-117) U/L Albumin 3.8 (3.4-5.0) gm/dl Diagnostic Findings Brain MRI 06/30/21 11:09 Brain MRI WITHOUT CONTRAST HISTORY: transient aphasia, left numbness/weakness TECHNIQUE: Multiplanar multisequence MRI of the brain was performed without the use of contrast. COMPARISON STUDY: None. FINDINGS: There is a small foci of restricted diffusion seen within the high convexity right frontal lobe on images 19 and 20 measuring 9 mm. This is consistent with a small acute infarct. The midline structures are intact. There is no mass, hematoma, midline shift. The major vascular flow-voids at the skull base are well-maintained. The orbits are unremarkable. Small retention cyst within the right sphenoid sinus and left maxillary sinus. The mastoid air cells are clear. IMPRESSION: A 9 mm focus of restricted diffusion within the right high convexity consistent with a small acute infarct. ACT 112: Negative or not required by law. Electronically signed by: Jayesh Parra M.D. 06/30/2021 12:24 PM Head MRA 06/30/21 11:09 Brain MRA HISTORY: Transient aphasia, left numb/weak TECHNIQUE: 3-D [id number] MRA of the brain was performed without contrast. COMPARISON STUDY: None. FINDINGS: Visualized intracranial internal carotid arteries, distal vertebral arteries, and basilar artery are widely patent. There is no significant stenosis, occlusion, or aneurysm seen within the bilateral ACAs, MCAs, or group underwriter. IMPRESSION: No significant stenosis, occlusion, or aneurysm within the [place] of [place]. ACT 112: Negative or not required by law. Electronically signed by: Jayesh Parra M.D. 06/30/2021 12:25 PM Neck MRA 06/30/21 11:09 NECK MRA HISTORY: Transient aphasia, left numb/weak TECHNIQUE: [id number] MRA of the neck was performed without contrast. All measurements were calculated based on NASCET criteria. COMPARISON STUDY: None. FINDINGS: The aortic arch and proximal great vessels are widely patent. There is no significant stenosis, occlusion, or dissection identified within the bilateral common carotid, internal carotid, or vertebral arteries. IMPRESSION: No significant stenosis, occlusion, or dissection identified within the carotid or vertebral arteries. ACT 112: Negative or not required by law. Electronically signed by: Jayesh Parra M.D. 06/30/2021 1:17 PM ECG Additional Comments: NSR with sinus arrhythmia. No PVC or PAC. No acute ST segment elevation or depression. Supervising Physician Co-Signing Physician Notes Patient seen and by me, care coordinated with Elida Brasher PA-C, please refer to her note above for further detail. Pt is a 30yo F with hx of small PFO who presents with sudden onset left sided weakness and speech abnormality starting around 10AM today. Speech and facial droop resolved after one minute per and left sided weakness improved but continued to have intermittent numbness of LUE over the next 20 minutes. In the ED, brain MRI was obtained,showed acute infarct in the right high frontal convexity. No medical history other than palpitations as a teenager and episode of chest pain while in 2018, prompting cardiac evaluation at that time by Dr. Fong. TTE from Apr 2018 normal except for possible small PFO. No stroke history in family but history of CAD and lupus. Patient is 9 months post- with second child and is nursing. Non-smoker. Not on OCPs. Patient is currently sitting up in bed, in no acute distress. She is alert oriented answers appropriately. She currently denies any neurological symptoms such as weakness numbness tingling in any of her extremities. On physical exam, her speech is fluent, cranial nerves 2-12 intact. There is no sensory loss noted in any of her extremities. Strength 5 out of 5 in both upper and lower extremities. Patient only complains of frontal headache. No dizziness, lightheadedness. Discussed with neurology and cardiology. Plan for WHIT tomorrow for further evaluation of her PFO. Starting aspirin and Plavix tomorrow. Patient received aspirin in the ED. MD Cordelia
--- NOTE | 2021-06-30 13:18 | Emergency Department Note ---
Impression & Plan Small vessel cerebrovascular accident (CVA), PFO (patent foramen ovale), Headache ED Provider Note Provider: Wilfrido Lee MD DATE OF SERVICE: 06/30/2021 CHIEF COMPLAINT: Transient aphasia, left-sided weakness/numbness HISTORY OF PRESENT ILLNESS: Patient is a 30-year-old female history of PFO and occasional headaches presenting here today after a sudden onset of some weakness and numbness in her left arm and minimally left leg that occurred around 10 AM this morning. Patient states that she was making phone calls and very weak and dropped her phone from her left hand and felt numb and weak in her left hand and a bit in her left leg. States she is some difficulty getting her words had a bit of a left facial droop. This is resolved after about a minute. Patient states she has just a little bit of slight tingling in her bilateral fingers and a little bit of a headache now. No trauma or syncope reported. No history of similar. Patient denies significant nausea or abdominal pain. She denies any chest pain, palpitations, shortness of breath. Patient does relate history of PFO and previously had cardiac evaluation by Dr. Barakat several years ago without significant abnormality. Patient denies any again any significant palpitations during this event. She denies recent travel or illness. Patient states she did not sleep the best last night however. Patient is currently breast-feeding approximately 9 months . Patient is not on OCPs. REVIEW OF SYSTEMS: A total of 10 review of systems was obtained and negative except as stated above in the HPI. PAST MEDICAL HISTORY: As noted above MEDICATIONS: Denies FMH: No significant early family history of CVA SOCIAL HISTORY: Lives at home with and 2 children, non-smoker PHYSICAL EXAM: GENERAL: alert and oriented in no acute distress on stretcher Head: normocephalic and atraumatic EYES: No injection, discharge or icterus. PERRL NECK: Trachea midline. Supple. ENT: Mucous membranes pink and moist. Pharynx without erythema or exudate. LUNGS: Airway patent. No retractions or tachypnea. Breath sounds clear. HEART: Regular rate and rhythm. No chest wall tenderness. ABDOMEN: Soft and non-tender, without guarding or rebound. SKIN: Acyanotic, warm, dry, without rashes EXTREMITIES: Without swelling, tenderness or deformity NEUROLOGICAL: No focal deficits. No aphasia. No facial droop or slurred speech. Tongue midline. Normal strength and tone in the extremities. Sensation to gross touch normal although reports some slight tingling in the bilateral fingers Ambulatory. EK bpm normal sinus rhythm with sinus arrhythmia. No PVC or PAC. No acute ST segment elevation or depression. QTC 434. CONTINUOUS CARDIAC MONITORING: was ordered and showed a heart rate of 60s-80s bpm in normal sinus rhythm Patient's laboratory studies and imaging reviewed. Differential includes Infection, dehydration, metabolic abnormality, hypo/hyperglycemia, electrolyte disturbance, anemia, hypoxia, cardiac sources, intracerebral event, toxicologic, neurologic, as well as other pathologies. IMPRESSION/MEDICAL DECISION MAKING: Patient was very transient approximately 1 to 2-minute episode of some aphasia with left facial droop and left arm and leg weakness/numbness. This is almost entirely resolved. 30-year-old without significant familiar risk factors or health risk factors beyond PFO. Given the patient's near resolution of symptoms of stroke alert was not called but the patient was sent for a stat MRI of the brain as well as MRA. Given small matter Reglan to help with mild headache. Denies significant nausea. Blood work here without significant nitrite abnormality or anemia. MRI confirms a small area of CVA in the right high frontal convexity. No acute restrictions in the head vascular on MRA. Patient was given a dose of aspirin. Discussed with her findings. Patient will need further evaluation of her stroke and possible further work-up from her PFO. With her permission discussed with her good friend Katelyn Brasher who works here. Hospitalist team will admit for further care here. DIAGNOSIS: Right CVA, headache DISPOSITION: Hospitalist will evaluate Patient was agreeable with this plan. Past Med/Surg History Medical History Abnormal ultrasound Encounter for anatomic survey History of ovarian cyst ruptured- no surgery Palpitations cardiac eval 04/28/2018; echo- small PFO Surgical History History of mandibular surgery Family History Grandmother (Maternal) Heart disease CHF; pacemaker Hypertension Systemic lupus erythematosus Grandfather (Paternal) Heart disease h/o CAD, CABG, in 60's when chopping wood Mother Hypertension Grandfather (Maternal) Lung cancer Father Heart disease NSTEMI, age 62, BIRD TRAPPER OM branch of circumflex Prostate cancer Social History Smoking Status: Never smoker Second Hand Exposure: No; Hx Alcohol Use: No Hx Substance Use: No Preferred Language: Icelandic Communication Ability: Effective Foreign Languages Professor Required: No Beliefs That Will Affect Care: None marital status: marital status details: Bc (32 yo)- [phone] Current Living Situation: Spouse Current Living Situation Comment: Spouse and son, 1 dog current occupational status: employed 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- [employer] Feels Safe at Home: Yes Assistive Devices: None Allergies Allergies Allergy/AdvReac Type Severity Reaction Status Date / Time No Known Drug Allergies Allergy no Verified 06/30/21 13:02 allergies Home Meds Home Medications Medication Instructions Recorded Confirmed No Known Home Medications 06/30/21 06/30/21 Results & Data (ED) Vital Signs Vital Signs - 24 hr 06/30/21 10:56 06/30/21 11:25 06/30/21 12:55 Temperature 36.6 C Temperature Source Temporal Artery Scan Pulse Rate 78 Pulse Rate [Apical] 88 Respiratory Rate 18 18 Respiratory Effort / Characteristics Non-Labored Respiratory Depth Normal Blood Pressure 141/78 H Blood Pressure [Left Arm] 139/85 Blood Pressure Mean 99 Blood Pressure Mean [Left Arm] 103 Blood Pressure Position [Left Arm] Pulse Oximetry 100 100 97 Oxygen Delivery Method Room Air Room Air Room Air Sepsis Recent Fever Within 48 Hours No Sepsis New/Unexplained Change in Mental Status No Sepsis Action Taken by Nursing No Action Required 06/30/21 14:58 Temperature Temperature Source Pulse Rate Pulse Rate [Apical] 69 Respiratory Rate 14 Respiratory Effort / Characteristics Non-Labored Spontaneous Respiratory Depth Blood Pressure Blood Pressure [Left Arm] 130/68 Blood Pressure Mean Blood Pressure Mean [Left Arm] 88 Blood Pressure Position [Left Arm] Sitting Pulse Oximetry 96 Oxygen Delivery Method Room Air Sepsis Recent Fever Within 48 Hours Sepsis New/Unexplained Change in Mental Status Sepsis Action Taken by Nursing Laboratory Data Result diagrams: 06/30/21 11:20 06/30/21 11:20 Lab Results 06/30/21 06/30/21 06/30/21 Range/Units 11:20 11:20 13:00 WBC 5.88 (4.8-10.8) K/uL RBC 4.40 (4.2-5.4) M/uL Hgb 12.8 (12.0-16.0) g/dL Hct 38.7 (37-47) % MCV 88.0 (80-100) fL MCH 29.1 (25-34) pg MCHC 33.1 (32-36) g/dL RDW Std Deviation 40.3 (36.4-46.3) fL RDW Coeff of Albert 12.5 (11.5-14.5) % Plt Count 230 (130-400) K/uL MPV 9.0 (7.4-10.4) fL Immature Gran % (Auto) 0.0 % Neut % (Auto) 44.0 % Lymph % (Auto) 43.0 % [place] % (Auto) 8.3 % Eos % (Auto) 3.7 % Baso % (Auto) 1.0 % Neut # (Auto) 2.58 (1.4-6.5) K/uL Lymph # (Auto) 2.53 (1.2-3.4) K/uL [place] # (Auto) 0.49 (0.11-0.59) K/uL Eos # (Auto) 0.22 (0-0.5) K/uL Baso # (Auto) 0.06 (0-0.2) K/uL Immature Gran # (Auto) 0.00 (0.00-0.02) K/uL Sodium 139 (136-145) mmol/L Potassium 4.3 (3.5-5.1) mmol/L Chloride 106 (98-107) mmol/L Carbon Dioxide 25 (21-32) mmol/L Anion Gap 8.0 (3-11) BUN 11 (7-18) mg/dl Creatinine 0.64 (0.6-1.2) mg/dl Est Cr Clr Drug Dosing 127.7 ml/min Est GFR ( Amer) 138.8 ml/min Est GFR (Non-Af Amer) 119.7 ml/min BUN/Creatinine Ratio 17.5 (10-20) Glucose 84 (70-99) mg/dl Calcium 8.9 (8.5-10.1) mg/dl Magnesium 1.9 (1.8-2.4) mg/dl Total Bilirubin 0.5 (0.2-1) mg/dl AST 13 L (15-37) U/L ALT 16 (12-78) Alkaline Phosphatase 88 (45-117) U/L Troponin I < 0.015 (0-0.045) ng/ml Total Protein 7.1 (6.4-8.2) gm/dl Albumin 3.8 (3.4-5.0) gm/dl Globulin 3.3 (2.5-4.0) gm/dl Albumin/Globulin Ratio 1.2 (0.9-2) TSH 1.730 (0.300-4.500) uIu/ml SARS-CoV-2, RNA, NAAT NEGATIVE (NEGATIVE) Administered Medications Discontinued Medications Aspirin (Aspirin 81 Mg Chew) 324 mg PO NOW STA Stop: 06/30/21 12:58 Last Admin: 06/30/21 13:04 Dose: 324 mg Documented by: [id number] Metoclopramide HCl (Metoclopramide Hcl Inj 5 Mg/Ml 2 Ml Vial) 5 mg IV ONE ONE Stop: 06/30/21 11:17 Last Admin: 06/30/21 13:04 Dose: 5 mg Documented by: [id number] Imaging Data Radiologist's Impression: Brain MRI 06/30/21 11:09 Brain MRI WITHOUT CONTRAST HISTORY: transient aphasia, left numbness/weakness TECHNIQUE: Multiplanar multisequence MRI of the brain was performed without the use of contrast. COMPARISON STUDY: None. FINDINGS: There is a small foci of restricted diffusion seen within the high convexity right frontal lobe on images 19 and 20 measuring 9 mm. This is co nsistent with a small acute infarct. The midline structures are intact. There is no mass, hematoma, midline shift. The major vascular flow-voids at the skull base are well-maintained. The orbits are unremarkable. Small retention cyst within the right sphenoid sinus and left maxillary sinus. The mastoid air cells are clear. IMPRESSION: A 9 mm focus of restricted diffusion within the right high convexity consistent with a small acute infarct. ACT 112: Negative or not required by law. Electronically signed by: Jayesh Parra M.D. 06/30/2021 12:24 PM Head MRA 06/30/21 11:09 Brain MRA HISTORY: Transient aphasia, left numb/weak TECHNIQUE: 3-D [id number] MRA of the brain was performed without contrast. COMPARISON STUDY: None. FINDINGS: Visualized intracranial internal carotid arteries, distal vertebral arteries, and basilar artery are widely patent. There is no significant stenosis, occlusion, or aneurysm seen within the bilateral ACAs, MCAs, or employment coordinator. IMPRESSION: No significant stenosis, occlusion, or aneurysm within the [place] of [place]. ACT 112: Negative or not required by law. Electronically signed by: Jayesh Parra M.D. 06/30/2021 12:25 PM Neck MRA 06/30/21 11:09 NECK MRA HISTORY: Transient aphasia, left numb/weak TECHNIQUE: [id number] MRA of the neck was performed without contrast. All measurements were calculated based on NASCET criteria. COMPARISON STUDY: None. FINDINGS: The aortic arch and proximal great vessels are widely patent. There is no significant stenosis, occlusion, or dissection identified within the bilateral common carotid, internal carotid, or vertebral arteries. IMPRESSION: No significant stenosis, occlusion, or dissection identified within the carotid or vertebral arteries. ACT 112: Negative or not required by law. Electronically signed by: Jayesh Parra M.D. 06/30/2021 1:17 PM Discharge Plan Visit Data Chief Complaint: Stroke/CVA Symptoms Stated Complaint: LEFT PAIN/DUMBNESS, SLURRED SPEECH, LEFT LEG, DIZZ ED Provider: Wilfrido Lee Discharge Problem: Small vessel cerebrovascular accident (CVA), PFO (patent foramen ovale), Headache Patient Disposition: Admitted As Inpatient Forms Stand Alone [facility]: [facility] Prescriptions Prescriptions: No Action No Known Home Medications RF: 0 Referrals Referrals: Isrrael Castro [Primary Care Provider] -
--- NOTE | 2021-06-30 13:19 | Magnetic Resonance Report ---
NECK MRA HISTORY: Transient aphasia, left numb/weak TECHNIQUE: [id number] MRA of the neck was performed without contrast. All measurements were calcu lated based on NASCET criteria. COMPARISON STUDY: None. FINDINGS: The aortic arch and proximal great vessels are widely patent. There is no significant sten osis, occlusion, or dissection identified within the bilateral common carotid, internal carotid, or v ertebral arteries. IMPRESSION: No significant stenosis, occlusion, or dissection identified within the carotid or vertebral arteries . ACT 112: Negative or not required by law. Electronically signed by: Jayesh Parra M.D. 06/30/2021 1:17 PM
--- NOTE | 2021-06-30 15:47 | Cardiology Consultation ---
Date of Consultation June 30, 2021 Assessment & Plan (1) Small vessel cerebrovascular accident (CVA): (2) PFO (patent foramen ovale): (3) Intermittent palpitations: 30-year-old female presents with acute right frontal cerebrovascular accident. Deficit nearly resolved. History of small PFO per echocardiogram in 2007, and 2018. Recommend repeat transthoracic echocardiogram for further assessment. Due to her age and lack of risk factors, recommend transesophageal echocardiogram to exclude LV thrombus, mass, or high risk PFO. Risk of procedure discussed. She is agreeable to proceed. Anesthesia consult placed. N.p.o. except medications after midnight. Appreciate neurology input. Dual antiplatelet therapy prescribed. Assess bilateral lower extremity venous duplex to exclude thrombosis. Hypercoagulable work-up in progress. No overt indication for anticoagulation currently. Further evaluation for paroxysmal atrial fibrillation or flutter indicated due to history of "cardiac episodes" and palpitations. Continue telemetry monitoring. Outpatient ZIO monitor recommended. All questions answered to the satisfaction of both the patient and her . History of Present Illness Reason for Consultation: CVA, history of patent foramen ovale Requesting Physician: Katelyn Brasher PA-C Attending Physician: Dr. Iqbal History of Present Illness 30-year-old female presents to the emergency department with acute left-sided weakness and expressive aphasia. Symptoms began at 10 AM while nursing her 8-month-old son. Symptoms slowly improved to paresthesias on her left side. In the ER her symptoms continue to improve. Continues to note mild "tingling" of her left fingertips. No word finding issues, visual changes, dysphagia, or weakness. MRI of brain revealing right frontal lobe restricted diffusion suggesting small acute infarct. History of small PFO per prior echocardiogram in 2018. She is not chronically treated with aspirin. Denies history of DVT, PE, or hypercoagulable state. She is not using control or tobacco. Reports history of "cardiac episodes". These episodes consist of significant palpitations and tachycardia followed by near syncope. During her high school years she experienced a few episodes of syncope associated with palpitations. Evaluated by pediatric cardiology. Holter monitor and echocardiogram unrevealing. She again followed up in 2018 with adult cardiology due to an episode of palpitations and tachycardia lasting several hours. The symptoms tend to recur 1-2 times per year, however, less severe over the past few years. Denies any recurrent syncope or near syncope. No orthopnea, PND, lower extremity edema, or claudication. Currently resting comfortably. present at bedside. Allergies Allergy/AdvReac Type Severity Reaction Status Date / Time No Known Drug Allergies Allergy no Verified 06/30/21 13:02 allergies Home Medications Medication Instructions Recorded Confirmed Type No Known Home Medications 06/30/21 06/30/21 History Patient History Medical History Abnormal ultrasound Encounter for anatomic survey History of ovarian cyst ruptured- no surgery Palpitations cardiac eval 04/28/2018; echo- small PFO Surgical History History of mandibular surgery Family History Grandmother (Maternal) Heart disease CHF; pacemaker Hypertension Systemic lupus erythematosus Grandfather (Paternal) Heart disease h/o CAD, CABG, in 60's when chopping wood Mother Hypertension Grandfather (Maternal) Lung cancer Father Heart disease NSTEMI, age 62, 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 circumflex Prostate cancer Social History Smoking Status: Never smoker Second Hand Exposure: No; Hx Alcohol Use: No Hx Substance Use: No Preferred Language: Belarusian Communication Ability: Effective Animal Attendant Required: No Beliefs That Will Affect Care: None marital status: marital status details: Bc (32 yo)- [phone] Current Living Situation: Spouse Current Living Situation Comment: Spouse and son, 1 dog current occupational status: employed 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- [employer] Feels Safe at Home: Yes Assistive Devices: None Review of Systems Review of Systems: All systems reviewed & are unremarkable except as noted in Subjective Physical Exam Constitutional: well developed, well nourished and average body habitus; no acute distress and not ill appearing Respiratory: normal respiratory effort; no respiratory distress, no labored breathing and no retractions Auscultation: lungs clear to auscultation bilaterally; no crackles, no rales, no rhonchi and no wheezes Cardiovascular: Rate/Rhythm: regular rate and regular rhythm Heart Sounds: normal S1 and normal S2; no murmur Vessels: no JVD and no carotid bruit Extremities: no edema Gastrointestinal (Abdomen): Inspection/Auscultation: abdomen normal to inspection and normal bowel sounds; abdomen not distended Percussion/Palpation: abdomen soft; abdomen nontender, no guarding and abdomen not rigid Neurologic: CN's II-XI intact bilaterally and moves all extremities Speech / Cognition: normal speech Motor/Sensory: no tremor and no pronator drift Mild paresthesias involving left fingertips. Psychiatric: A+Ox3, euthymic affect Results & Data ([facility]) Vital Signs (Past 12 Hours) Vital Signs Temp Pulse Pulse Resp BP BP Pulse Ox 06/30/21 14:58 69 14 130/68 96 06/30/21 12:55 88 18 139/85 97 06/30/21 11:25 100 06/30/21 10:56 36.6 C 78 18 141/78 H 100
[2021-06-30] MEDS ORDERED: ZOLPIDEM TARTRATE 5 MG TAB PO PRN (16:40)
[2021-06-30] MEDS ORDERED: ONDANSETRON INJ 2 MG/ML 2 ML VIAL IV PRN (16:40)
[2021-06-30] MEDS ORDERED: PHARMACIST DISCHARGE MED REC CONSULT PRN (16:40)
[2021-06-30] MEDS ORDERED: POLYETHYLENE (MIRALAX) 17 GM PACK PO PRN (16:40)
[2021-06-30] MEDS ORDERED: ACETAMINOPHEN 325 MG TAB PO PRN (16:40)
--- NOTE | 2021-06-30 17:49 | Anesthesiology Consultation ---
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 History Height/Weight Height: 5 ft 5 in Weight: 68.8 kg Allergies Allergy/AdvReac Type Severity Reaction Status Date / Time No Known Drug Allergies Allergy no Verified 06/30/21 13:02 allergies Medications Home Medications Medication Instructions Recorded Confirmed Last Taken No Known Home Medications 06/30/21 06/30/21 Unknown Past Medical History Medical History Abnormal ultrasound Encounter for anatomic survey History of ovarian cyst ruptured- no surgery Palpitations cardiac eval 04/28/2018; echo- small PFO Past Family History Family History Grandmother (Maternal) Heart disease CHF; pacemaker Hypertension Systemic lupus erythematosus Grandfather (Paternal) Heart disease h/o CAD, CABG, in 60's when chopping wood Mother Hypertension Grandfather (Maternal) Lung cancer Father Heart disease NSTEMI, age 62, INFECTIOUS 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 circumflex Prostate cancer Past Surgical History Surgical History History of mandibular surgery Social History Smoking Status: Never smoker Hx Alcohol Use: No Alcohol type: wine alcohol intake frequency: holidays/special occasions only Hx Substance Use: No substance use type: does not use Physical Exam Vital Signs Last Vital Signs Temp 98.1 F 06/30/21 16:46 Pulse 79 06/30/21 17:38 Resp 18 06/30/21 16:46 BP 130/81 06/30/21 16:46 Pulse Ox 97 06/30/21 16:46 Testing Laboratory Results 06/30/21 11:20 06/30/21 11:20 06/30/21 Unknown POC Ur Test Pending Laboratory Tests 06/30/21 13:00 SARS-CoV-2, RNA, NAAT NEGATIVE Electrocardiogram Date: 06/30/21 Normal sinus rhythm with sinus arrhythmia, rate 76 bpm Normal ECG No previous ECGs available
[2021-06-30 17:55] LABS: Appearance Urine Clear (Clear); Bacteria Urine Automated 1+ (Negative); Bilirubin Urine Negative (Negative); Blood Urine Negative (Negative); Color Urine Yellow; Epithelial Cell Urine Auto 20-30 /lpf (0-5); Glucose Urine UA Negative (Negative); Ketones Urine Trace (Negative); Leukocyte Esterase Urine 2+ (Negative); Nitrite Urine Negative (Negative); Protein Urine Negative (Negative); RBC Urine Automated 0-4 /hpf (0-4); Urobilinogen Urine Negative (Negative); pH Urine 6.5 (4.5-7.5)
[2021-06-30] MEDS: HEPARIN SOD 5,000 UNIT/0.5 ML VIAL SQ SCH (21:24)
[2021-07-01] MEDS: HEPARIN SOD 5,000 UNIT/0.5 ML VIAL SQ SCH ×2 (05:06→15:00)
--- NOTE | 2021-07-01 06:22 | Electrocardiogram Report ---
Test Reason : Blood Pressure : / mmHG Vent. Rate : 076 BPM Atrial Rate : 076 BPM P-R Int : 132 ms QRS Dur : 086 ms QT Int : 386 ms P-R-T Axes : 016 042 041 degrees QTc Int : 434 ms Normal sinus rhythm with sinus arrhythmia Normal ECG No previous ECGs available Confirmed by Quirino Lares ([id number]) on 07/01/2021 6:22:09 AM Referred By: Confirmed By:Quirino Lares
[2021-07-01 07:01] LABS: Hematocrit (blood only) 38.4 % (37-47); Hemoglobin 12.7 g/dL (12.0-16.0); Mean Corpuscular Hemoglobin 29.2 pg (25-34); Mean Corpuscular Hgb Conc 33.1 g/dL (32-36); Mean Corpuscular Volume 88.3 fL (80-100); Mean Platelet Volume 9.3 fL (7.4-10.4); Platelet Count 233 K/uL (130-400); RDW Coefficient of Variation 12.7 % (11.5-14.5); RDW Standard Deviation 41.2 fL (36.4-46.3); Red Blood Count 4.35 M/uL (4.2-5.4); White Blood Count 6.32 K/uL (4.8-10.8)
[2021-07-01] MEDS ORDERED: LIDOCAINE VISCOUS 2% 15 ML UDC ONE (07:09)
[2021-07-01] MEDS ORDERED: BENZOCAINE/TETRACAIN/BUTAM 50 APPLN/5 GM CAN EXT ONE (07:15)
[2021-07-01 07:20] LABS: BUN Creatinine Ratio 23.3 (10-20); Calcium 8.5 mg/dl (8.5-10.1); Creatinine Clr Calc Pharmacy 132.2 ml/min; Est GFR (Non-African American) 125.1 ml/min
--- NOTE | 2021-07-01 07:24 | Ultrasound Report ---
BILATERAL LOWER EXTREMITY VENOUS DOPPLER CLINICAL HISTORY: Evaluate for DVT in setting of acute R infarct COMPARISON STUDY: No previous studies for comparison. TECHNIQUE: Sonography of the deep venous system of the bilateral lower extremities was performed. Co mpression and augmentation were evaluated. FINDINGS: The bilateral common femoral, superficial femoral and popliteal veins were compressible. A ugmentation was normal. Flow was shown within the deep calf vessels. IMPRESSION: No evidence of deep venous thrombus within the bilateral lower extremities. ACT 112: Negative or not required by law. Electronically signed by: Oswald Win M.D. 07/01/2021 7:22 AM
--- NOTE | 2021-07-01 07:31 | History & Physical Bridge Note ---
Date of Service July 01, 2021 History & Physical Bridge Note I have examined the patient, reviewed the History & Physical and in the interval since the performance of the History & Physical I have noted the following changes of clinical significance: no changes noted. No neurologic deficits noted on examination or per patient's subjective report.
[2021-07-01 07:40] LABS: Estimated Average Glucose 97 mg/dl
--- NOTE | 2021-07-01 08:21 | Post Operative Brief Note ---
Cardiology Brief Post Op Date of Surgery July 01, 2021 Pre & Post Diagnosis Preprocedure diagnosis: small right frontal lobe infarct with neurologic symptoms having resolved Postprocedure diagnosis: small PFO with mild right to left interatrial shunt Operation Date: 07/01/21 07:30 Procedure WHIT: After informed consent was obtained and a timeout was performed the patient was sedated with the assistance of the anesthesia service receiving a total of 430 mg of IV propofol. The oropharynx was anesthetized with 2 sprays of Cetacaine and the administration of 30 mL of viscous lidocaine. The cardiac chamber size was normal. Left ventricular systolic function was normal. There is no evidence of left atrial thrombus or left atrial appendage thrombus. There is a small PFO with mild right to left interatrial shunt observed with the administration of agitated saline contrast. Distribution Estimator Baron Fong DO Rail Express Clerk CHARLIE Ochoa Estimated Blood Loss 0 Findings Consistent with Post-Op Diagnosis As noted above. Anesthesia Type MAC Complications None
[2021-07-01] MEDS ORDERED: ASPIRIN 81 MG ECTAB PO SCH (09:00)
[2021-07-01] MEDS ORDERED: CLOPIDOGREL BISULFATE 75 MG TAB PO SCH (09:00)
--- NOTE | 2021-07-01 10:12 | Cardiology Progress Note ---
Date of Service July 01, 2021 Assessment & Plan (1) Cryptogenic stroke: (2) PFO with atrial septal aneurysm: (3) Intermittent palpitations: Plan: MRI of brain revealed a 9 mm focus of restricted diffusion within the right frontal lob consistent with a small infarct per the radiology report. LEVduplex negative for DVT. MRA of head and neck is normal. Normotensive. LDL cholesterol 95 mg/dl. WHIT reveals atrial septal aneurysm with a small to moderate PFO and mild right to left interatrial shunt. Event occurred while on no antiplatelet therapy. Medical therapy options include anticoagulation or antiplatelet therapy. Given lack of DVT, proceed with ASA 81 mg daily and clopidogrel. Place 2 week Zio monitor as outpatient (likely tomorrow at [facility]) to evaluate for occult arrhythmia. Consult interventional / structural heart disease at [facility] as outpatient for consideration of percutaneous device closure. OK for patient to breast feed. Discussed findings and plan with patient in person and her by phone. Admission and Anticipated Discharge Date Admission Date: June 30, 2021 Subjective Patient seen prior to , during and after WHIT. Pt comfortable. Neurologic symptoms have completely resolved. Review of Systems Review of Systems: All systems reviewed & are unremarkable except as noted in HPI & below Physical Exam Physical Exam: Temp Pulse Resp BP Pulse Ox 36.8 C 79 16 98/79 L 96 07/01/21 03:57 07/01/21 08:50 07/01/21 08:50 07/01/21 08:50 07/01/21 08:50 Constitutional: WD/WN, vitals as above Respiratory: normal respiratory effort, lungs clear to auscultation Cardiovascular: RRR, no murmur, no edema Gastrointestinal (Abdomen): normal bowel sounds, soft, nontender, no hepatosplenomegaly Neurologic: PERRL, EOMI, accommodation nl, no face palsy, no dysarthria Results & Data ([facility]) Vital Signs (Past 12 Hours) Vital Signs Temp Pulse Pulse Resp BP Pulse Ox 07/01/21 08:50 79 16 98/79 L 96 07/01/21 08:35 64 16 114/74 96 07/01/21 08:20 80 16 112/69 96 07/01/21 07:24 75 18 120/76 98 07/01/21 03:57 36.8 C 69 16 102/65 98 07/01/21 00:00 36.8 C 67 16 110/73 98 06/30/21 23:00 78
--- NOTE | 2021-07-01 13:25 | Hospitalist Progress Note ---
Date of Service July 01, 2021 Assessment & Plan (1) Small vessel cerebrovascular accident (CVA): Plan: 30yo F with hx of a small PFO who presents with sudden onset left sided weakness and speech abnormality and was found to have an acute infarct in the right high frontal convexity. Developed LUE weakness, dysarthria in the AM of admission that has since fully resolved. Brain MRI confirms an acute infarct in the right high frontal convexity IMPRESSION: A 9 mm focus of restricted diffusion within the right high convexity consistent with a small acute infarct. Head/neck MRA with no acute restrictions in the head vascular on MRA Given aspirin in ED Vital signs stable, labs unremarkable, covid PCR negative, ECG with SR with sinus arrhythmia, no acute ischemic changes BLE venous dopplers to r/o DVTs - negative for DVT hypercoagulability panel - pending WHIT - reveals atrial septal aneurysm with a small to moderate PFO and mild right to left interatrial shunt. Discussed w/ cardiology Event occurred while on no antiplatelet therapy. Medical therapy options include anticoagulation or antiplatelet therapy. Given lack of DVT, proceed with ASA 81 mg daily and clopidogrel. Place 2 week Zio monitor as outpatient (likely tomorrow at [facility]) to evaluate for occult arrhythmia. [place] [facility] [place] for consideration of percutaneous device closure. Discussed with neurology on admission as well - Dr. Iyer recommended to start dual antiplatelet therapy Patient will be discharged on aspirin and Plavix, for 21 days, then aspirin indefinitely she will follow-up with neurology as outpatient Code status: FULL PCP: Dr. Castro (seen by [facility] on patient request) Dispo: Plan to DC home Admission and Anticipated Discharge Date Admission Date: June 30, 2021 Subjective Patient seen in follow up of acute CVA Patient feels well, has minimal headache, all other symptoms already resolved yesterday Denies any numbness tingling, weakness, visual changes Also denies any nausea, chest pain palpitations, shortness of breath, abdominal pain Review of Systems Review of Systems: All systems reviewed & are unremarkable except as noted in Subjective Physical Exam Physical Exam: General Appearance:young F in NAD Head: normocephalic, atraumatic Eyes:normal inspection, PERRL, EOMI, conjunctivae normal, anicteric sclerae ENT: external ear and nose normal, oropharynx normal Neck: normal visual inspection Respiratory:normal respiratory effort, lungs clear to auscultation, no wheeze, rales, rhonchi. No accessory muscle use Cardiovascular: regular rate, rhythm, no murmur, normal peripheral pulses, no BLE edema. Vessels: no JVD Chest: normal inspection of chest Abdomen/GI: normal bowel sounds, soft, nontender Extremities/Musculoskeletal:extremities motor strength 5/5 Neurologic: PERRL, EOMI, no face palsy, moves all extremities, no ambulatory dysfunction Psychiatric:A+Ox3, euthymic affect Skin: no rashes, normal color, warm/dry Results & Data Results & Data ([facility]) Vital Signs (Past 12 Hours) Vital Signs Temp Pulse Pulse Resp BP Pulse Ox 07/01/21 11:04 36.6 C 62 17 117/76 97 07/01/21 10:45 67 07/01/21 09:50 80 18 117/79 86 L 07/01/21 09:20 88 17 113/72 07/01/21 09:11 36.4 C L 55 L 17 107/71 96 07/01/21 08:50 79 16 98/79 L 96 07/01/21 08:35 64 16 114/74 96 07/01/21 08:20 80 16 112/69 96 07/01/21 07:24 75 18 120/76 98 07/01/21 03:57 36.8 C 69 16 102/65 98 Laboratory Results 07/01/21 07/01/21 07/01/21 Range/Units 08:04 06:26 06:26 WBC (4.8-10.8) K/uL RBC (4.2-5.4) M/uL Hgb (12.0-16.0) g/dL Hct (37-47) % MCV (80-100) fL MCH (25-34) pg MCHC (32-36) g/dL RDW Std Deviation (36.4-46.3) fL RDW Coeff of Albert (11.5-14.5) % Plt Count (130-400) K/uL MPV (7.4-10.4) fL LA PTT Screen Protein C Activity Protein S Activity Antithrombin III Activ Factor V Leiden Mutat Factor V Leiden Interp Sodium 140 (136-145) mmol/L Potassium 4.0 (3.5-5.1) mmol/L Chloride 110 H (98-107) mmol/L Carbon Dioxide 23 (21-32) mmol/L Anion Gap 8.0 (3-11) BUN 13 (7-18) mg/dl Creatinine 0.56 L (0.6-1.2) mg/dl Est Cr Clr Drug Dosing 132.2 ml/min Est GFR ( Amer) 145.0 ml/min Est GFR (Non-Af Amer) 125.1 ml/min BUN/Creatinine Ratio 23.3 H (10-20) Glucose 82 (70-99) mg/dl Estimat Average Glucose 97 mg/dl Hemoglobin A1c 5.0 (4.5-5.6) % Calcium 8.5 (8.5-10.1) mg/dl Triglycerides 71 (0-150) mg/dl Cholesterol 164 (0-200) mg/dl LDL Cholesterol, Calc 95 mg/dl VLDL Cholesterol, Calc 14 mg/dl HDL Cholesterol 55 mg/dl Cholesterol/HDL Ratio 3 Homocysteine Urine Color Urine Appearance (Clear) Urine pH (4.5-7.5) Ur Specific [place] (1.000-1.030) Urine Protein (Negative) Urine Glucose (UA) (Negative) Urine Ketones (Negative) Urine Blood (Negative) Urine Nitrite (Negative) Urine Bilirubin (Negative) Urine Urobilinogen (Negative) Ur Leukocyte Esterase (Negative) Urine WBC (Auto) (0-5) /hpf Urine RBC (Auto) (0-4) /hpf U Hyaline Cast (Auto) (0-5) /lpf U Epithel Cells (Auto) (0-5) /lpf Urine Bacteria (Auto) (Negative) POC Ur Test NEG Beta-2-GPI IgG Ab Beta-2-GPI IgM Ab Anti-Cardiolipin IgG Ab Anti-Cardiolipin IgM Ab SARS-CoV-2, RNA, NAAT (NEGATIVE) Prothrombin Gene Mutate Prothromb Gene Comment 07/01/21 06/30/21 06/30/21 Range/Units 06:26 Unknown Unknown WBC 6.32 (4.8-10.8) K/uL RBC 4.35 (4.2-5.4) M/uL Hgb 12.7 (12.0-16.0) g/dL Hct 38.4 (37-47) % MCV 88.3 (80-100) fL MCH 29.2 (25-34) pg MCHC 33.1 (32-36) g/dL RDW Std Deviation 41.2 (36.4-46.3) fL RDW Coeff of Albert 12.7 (11.5-14.5) % Plt Count 233 (130-400) K/uL MPV 9.3 (7.4-10.4) fL LA PTT Screen Protein C Activity Protein S Activity Antithrombin III Activ Factor V Leiden Mutat Factor V Leiden Interp Sodium (136-145) mmol/L Potassium (3.5-5.1) mmol/L Chloride (98-107) mmol/L Carbon Dioxide (21-32) mmol/L Anion Gap (3-11) BUN (7-18) mg/dl Creatinine (0.6-1.2) mg/dl Est Cr Clr Drug Dosing ml/min Est GFR ( Amer) ml/min Est GFR (Non-Af Amer) ml/min BUN/Creatinine Ratio (10-20) Glucose (70-99) mg/dl Estimat Average Glucose mg/dl Hemoglobin A1c (4.5-5.6) % Calcium (8.5-10.1) mg/dl Triglycerides (0-150) mg/dl Cholesterol (0-200) mg/dl LDL Cholesterol, Calc mg/dl VLDL Cholesterol, Calc mg/dl HDL Cholesterol mg/dl Cholesterol/HDL Ratio Homocysteine Urine Color Yellow Urine Appearance Clear (Clear) Urine pH 6.5 (4.5-7.5) Ur Specific [place] 1.020 (1.000-1.030) Urine Protein Negative (Negative) Urine Glucose (UA) Negative (Negative) Urine Ketones Trace H (Negative) Urine Blood Negative (Negative) Urine Nitrite Negative (Negative) Urine Bilirubin Negative (Negative) Urine Urobilinogen Negative (Negative) Ur Leukocyte Esterase 2+ H (Negative) Urine WBC (Auto) 10-30 H (0-5) /hpf Urine RBC (Auto) 0-4 (0-4) /hpf U Hyaline Cast (Auto) 5-10 H (0-5) /lpf U Epithel Cells (Auto) 20-30 H (0-5) /lpf Urine Bacteria (Auto) 1+ H (Negative) POC Ur Test Cancelled Beta-2-GPI IgG Ab Beta-2-GPI IgM Ab Anti-Cardiolipin IgG Ab Anti-Cardiolipin IgM Ab SARS-CoV-2, RNA, NAAT (NEGATIVE) Prothrombin Gene Mutate Prothromb Gene Comment 06/30/21 06/30/21 06/30/21 Range/Units 14:57 14:57 14:57 WBC (4.8-10.8) K/uL RBC (4.2-5.4) M/uL Hgb (12.0-16.0) g/dL Hct (37-47) % MCV (80-100) fL MCH (25-34) pg MCHC (32-36) g/dL RDW Std Deviation (36.4-46.3) fL RDW Coeff of Albert (11.5-14.5) % Plt Count (130-400) K/uL MPV (7.4-10.4) fL LA PTT Screen Pending Protein C Activity Pending Protein S Activity Pending Antithrombin III Activ Pending Factor V Leiden Mutat Pending Factor V Leiden Interp Pending Sodium (136-145) mmol/L Potassium (3.5-5.1) mmol/L Chloride (98-107) mmol/L Carbon Dioxide (21-32) mmol/L Anion Gap (3-11) BUN (7-18) mg/dl Creatinine (0.6-1.2) mg/dl Est Cr Clr Drug Dosing ml/min Est GFR ( Amer) ml/min Est GFR (Non-Af Amer) ml/min BUN/Creatinine Ratio (10-20) Glucose (70-99) mg/dl Estimat Average Glucose mg/dl Hemoglobin A1c (4.5-5.6) % Calcium (8.5-10.1) mg/dl Triglycerides (0-150) mg/dl Cholesterol (0-200) mg/dl LDL Cholesterol, Calc mg/dl VLDL Cholesterol, Calc mg/dl HDL Cholesterol mg/dl Cholesterol/HDL Ratio Homocysteine Pending Urine Color Urine Appearance (Clear) Urine pH (4.5-7.5) Ur Specific [place] (1.000-1.030) Urine Protein (Negative) Urine Glucose (UA) (Negative) Urine Ketones (Negative) Urine Blood (Negative) Urine Nitrite (Negative) Urine Bilirubin (Negative) Urine Urobilinogen (Negative) Ur Leukocyte Esterase (Negative) Urine WBC (Auto) (0-5) /hpf Urine RBC (Auto) (0-4) /hpf U Hyaline Cast (Auto) (0-5) /lpf U Epithel Cells (Auto) (0-5) /lpf Urine Bacteria (Auto) (Negative) POC Ur Test Beta-2-GPI IgG Ab Pending Beta-2-GPI IgM Ab Pending Anti-Cardiolipin IgG Ab Pending Anti-Cardiolipin IgM Ab Pending SARS-CoV-2, RNA, NAAT (NEGATIVE) Prothrombin Gene Mutate Pending Prothromb Gene Comment Pending 06/30/21 Range/Units 13:00 WBC (4.8-10.8) K/uL RBC (4.2-5.4) M/uL Hgb (12.0-16.0) g/dL Hct (37-47) % MCV (80-100) fL MCH (25-34) pg MCHC (32-36) g/dL RDW Std Deviation (36.4-46.3) fL RDW Coeff of Albert (11.5-14.5) % Plt Count (130-400) K/uL MPV (7.4-10.4) fL LA PTT Screen Protein C Activity Protein S Activity Antithrombin III Activ Factor V Leiden Mutat Factor V Leiden Interp Sodium (136-145) mmol/L Potassium (3.5-5.1) mmol/L Chloride (98-107) mmol/L Carbon Dioxide (21-32) mmol/L Anion Gap (3-11) BUN (7-18) mg/dl Creatinine (0.6-1.2) mg/dl Est Cr Clr Drug Dosing ml/min Est GFR ( Amer) ml/min Est GFR (Non-Af Amer) ml/min BUN/Creatinine Ratio (10-20) Glucose (70-99) mg/dl Estimat Average Glucose mg/dl Hemoglobin A1c (4.5-5.6) % Calcium (8.5-10.1) mg/dl Triglycerides (0-150) mg/dl Cholesterol (0-200) mg/dl LDL Cholesterol, Calc mg/dl VLDL Cholesterol, Calc mg/dl HDL Cholesterol mg/dl Cholesterol/HDL Ratio Homocysteine Urine Color Urine Appearance (Clear) Urine pH (4.5-7.5) Ur Specific [place] (1.000-1.030) Urine Protein (Negative) Urine Glucose (UA) (Negative) Urine Ketones (Negative) Urine Blood (Negative) Urine Nitrite (Negative) Urine Bilirubin (Negative) Urine Urobilinogen (Negative) Ur Leukocyte Esterase (Negative) Urine WBC (Auto) (0-5) /hpf Urine RBC (Auto) (0-4) /hpf U Hyaline Cast (Auto) (0-5) /lpf U Epithel Cells (Auto) (0-5) /lpf Urine Bacteria (Auto) (Negative) POC Ur Test Beta-2-GPI IgG Ab Beta-2-GPI IgM Ab Anti-Cardiolipin IgG Ab Anti-Cardiolipin IgM Ab SARS-CoV-2, RNA, NAAT NEGATIVE (NEGATIVE) Prothrombin Gene Mutate Prothromb Gene Comment Medications Administered Current Inpatient Medications Acetaminophen (Acetaminophen 325 Mg Tab) 650 mg PO Q4H PRN PRN Reason: Pain or Fever Stop: 07/30/21 16:39 Aspirin (Aspirin 81 Mg Ectab) 81 mg PO [facility] Stop: 07/31/21 08:59 Last Admin: 07/01/21 09:13 Dose: 81 mg Documented by: Clopidogrel Bisulfate (Clopidogrel Bisulfate 75 Mg Tab) [facility] [place] [facility] [place]: 07/31/21 08:59 Last Admin: 07/01/21 09:13 Dose: 75 mg Documented by: Heparin Sodium (Porcine) (Heparin Sod 5,000 Unit/0.5 Ml Vial) 5,000 units SQ Q8 [facility] Stop: 07/30/21 21:59 Last Admin: 07/01/21 05:06 Dose: 5,000 units Documented by: Miscellaneous Information (Pharmacist Discharge Med Rec Consult) 1 ea N/A UD PRN PRN Reason: Consult Stop: 07/30/21 16:39 Miscellaneous Information (Stroke Patient Discharge) 1 ea N/A NOW STA Stop: 07/01/21 15:39 Ondansetron HCl (Ondansetron Inj 2 Mg/Ml 2 Ml Vial) 4 mg IV Q6H PRN PRN Reason: Nausea Stop: 07/30/21 16:39 Polyethylene Glycol (Polyethylene (Miralax) 17 Gm Pack) 17 gm PO DAILY PRN PRN Reason: Constipation Stop: 07/30/21 16:39 Zolpidem Tartrate (Zolpidem Tartrate 5 Mg Tab) 5 mg PO HS PRN PRN Reason: Sleep Stop: 07/30/21 16:39 Last Admin: 06/30/21 21:30 Dose: 5 mg Documented by:
--- NOTE | 2021-07-01 14:14 | Neurology Consultation ---
Date of Consultation July 01, 2021 Assessment & Plan (1) Cryptogenic stroke: 1. MRI 9 mm stroke- symptoms have resolved 2. MRA head/neck - no significant stenosis or narrowing 3. aspirin 81 mg and plavix 75 mg daily x 21 day then aspirin 81 mg alone for life 4. ZIO as outpatient 5. hypercoag work up in process 6. cardiology for further recommendations and possible closure of PFO 7. follow up with neurology in 4-6 weeks Kiya Young PAC schedule (2) PFO with atrial septal aneurysm: 1. cards recommendations Supervising Physician Co-Signing Physician Notes Patient was seen and examined. Reviewed and discussed recent MRI brain findig which shows acute right frontal or right MCA ischemic stroke which appears embolic. No history of prior stroke. Presented with left sided weakness and numbness which has now resolved. No weakness or focal findings on examine. TTE shows PFO. Agree with cardiology reocmmendations including Zio and cardiac surgery consult. ASA 81 mg daily and PLavix 75 mg daily x3 weeks then ASA 81 mg daily. Hypercoag pending. Follow up wiht Neuro in [address] Grover and Dr. Fong. History of Present Illness Reason for Consultation: small R sided infarct Requesting Physician: Giles Storey MD Attending Physician: Giles Storey MD History of Present Illness Daysi is a 30 year old female with PMH- a small PFO who presents with sudden onset left sided weakness and speech abnormality starting around 10a 06/30/21 and was brought to the [facility] ED. She woke in normal state of health and was talking on the phone when she developed numbness and weakness in left arm and dropped her cell phone out of left hand and had some mild left leg weakness at this time as well as difficulty getting her words out and and a small left facial droop. Speech and facial droop resolved after one minute per and left sided weakness improved but continued to have intermittent numbness of LUE over the next 20 minutes. No issues ambulating to car or walking into ER. Had a small amount of tingling in left hand upon initial arrival as well as dizziness and mild headache but denies any speech or swallowing issues or weakness at this time. She is now back to baseline. denies CP, SOB, abdominal pain, N, V. Allergies Allergy/AdvReac Type Severity Reaction Status Date / Time No Known Drug Allergies Allergy no Verified 06/30/21 13:02 allergies Home Medications Medication Instructions Recorded Confirmed Type aspirin 81 mg tablet,delayed 81 mg PO QAM #30 tab 07/01/21 Rx release clopidogrel 75 mg tablet 75 mg PO QAM #20 tab 07/01/21 Rx Patient History Medical History Abnormal ultrasound Encounter for anatomic survey History of ovarian cyst ruptured- no surgery Palpitations cardiac eval 04/28/2018; echo- small PFO Surgical History History of mandibular surgery Family History Grandmother (Maternal) Heart disease CHF; pacemaker Hypertension Systemic lupus erythematosus Grandfather (Paternal) Heart disease h/o CAD, CABG, in 60's when chopping wood Mother Hypertension Grandfather (Maternal) Lung cancer Father Heart disease NSTEMI, age 62, [employer] MA[employer]GER [employer] Prostate cancer Social History Smoking Status: Never smoker Second Hand Exposure: No; Hx Alcohol Use: No Hx Substance Use: No Preferred Language: Thai Communication Ability: Effective Shook Splicer Required: No Beliefs That Will Affect Care: None marital status: marital status details: Bc (32 yo)- [phone] Current Living Situation: Spouse Current Living Situation Comment: Spouse and 2 kids, 1 dog current occupational status: employed 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- [employer] Other Information That Helps Us Care for You: No Feels Safe at Home: Yes Safety Concerns: Feels Safe At This Time Assistive Devices: None Review of Systems Review of Systems: All systems reviewed & are unremarkable except as noted in HPI & below Physical Exam Physical Exam: Physical Exam: Constitutional: appearance nourished, healthy and normal Ears, Nose, Mouth and Throat: mucous membranes moist, no injection and skin normal, eyes normal Cardiovascular: normal S-1 and S-2 and regular rate and rhythm Respiratory: clear to auscultation (CTA) and no rales, rhonchi or wheeze Musculoskeletal: no peripheral edema and good distal pulses Skin: no stigmata of neurocutaneous disease noted and normal and intact Eyes: extraocular muscles intact (EOMI) and pupils equal, round and reactive to light (PERRL) NEUROLOGIC EXAMINATION: Mental status: Alert and interactive Oriented to full date and location Oriented to person Speech fluent with no evidence of aphasia Cranial Nerves Normal findings for Cranial Nerves II - XII Sensory: no sensory deficits Coordination: finger to nose and no graphesthesia Gait/Stance: Posture normal. Motor: Negative for pronator drift of out stretched arms with eyes closed. Strength: Normal - 5/5 all extremities Results & Data ([facility]) Vital Signs (Past 12 Hours) Vital Signs Temp Pulse Pulse Resp BP Pulse Ox 07/01/21 11:04 36.6 C 62 17 117/76 97 07/01/21 10:45 67 07/01/21 09:50 80 18 117/79 86 L 07/01/21 09:20 88 17 113/72 07/01/21 09:11 36.4 C L 55 L 17 107/71 96 07/01/21 08:50 79 16 98/79 L 96 07/01/21 08:35 64 16 114/74 96 07/01/21 08:20 80 16 112/69 96 07/01/21 07:24 75 18 120/76 98 07/01/21 03:57 36.8 C 69 16 102/65 98 Laboratory Results Abnormal lab results 06/30/21 07/01/21 Range/Units Unknown 06:26 Chloride 110 H (98-107) mmol/L Creatinine 0.56 L (0.6-1.2) mg/dl BUN/Creatinine Ratio 23.3 H (10-20) Urine Ketones Trace H (Negative) Ur Leukocyte Esterase 2+ H (Negative) Urine WBC (Auto) 10-30 H (0-5) /hpf U Hyaline Cast (Auto) 5-10 H (0-5) /lpf U Epithel Cells (Auto) 20-30 H (0-5) /lpf Urine Bacteria (Auto) 1+ H (Negative) Diagnostic Findings MRI brain-A 9 mm focus of restricted diffusion within the right high convexity consistent with a small acute infarct. MRA head-No significant stenosis, occlusion, or aneurysm within the [place] of [place]. MRA neck-No significant stenosis, occlusion, or dissection identified within the carotid or vertebral arteries. venous doppler- No evidence of deep venous thrombus within the bilateral lower extremities. WHIT- 55-60% EF small PFO
--- NOTE | 2021-07-01 14:28 | Anesthesiology Progress Note ---
Date of Service July 01, 2021 Anesthesia Post Procedure Vital Signs Vital Signs: Temp Pulse Pulse Resp BP BP Pulse Ox 07/01/21 11:04 36.6 C 62 17 117/76 97 07/01/21 10:45 67 07/01/21 09:50 80 18 117/79 86 L 07/01/21 09:20 88 17 113/72 07/01/21 09:11 36.4 C L 55 L 17 107/71 96 07/01/21 08:50 79 16 98/79 L 96 07/01/21 08:35 64 16 114/74 96 07/01/21 08:20 80 16 112/69 96 07/01/21 07:24 75 18 120/76 98 07/01/21 03:57 36.8 C 69 16 102/65 98 07/01/21 00:00 36.8 C 67 16 110/73 98 06/30/21 23:00 78 06/30/21 19:11 36.7 C 78 16 117/69 96 06/30/21 17:38 79 06/30/21 16:46 36.7 C 77 18 130/81 97 06/30/21 14:58 69 14 130/68 96 Transfer of Care Handoff Completed per policy Notes Mental Status: alert / awake / arousable and participated in evaluation Patient Amnestic to Procedure: Yes Nausea / Vomiting: adequately controlled Pain: adequately controlled Airway Patency, RR, SpO2: stable & adequate BP & HR: stable & adequate Hydration State: stable & adequate Anesthetic Complications: no major complications apparent and Pt Satisfied with anesthetic care
[2021-07-01] MEDS ORDERED: STROKE PATIENT DISCHARGE STA (15:38)
--- NOTE | 2021-07-01 15:50 | Discharge Summary ---
Date of Service July 01, 2021 Admission HPI Per Admitting Provider This is a 30yo F with PMH of a small PFO who presents with sudden onset left sided weakness and speech abnormality starting around 10AM today. Patient woke in normal state of health and was talking on the phone when she developed numbness and weakness in left arm and dropped her cell phone out of left hand. Also endorses mild left leg weakness at this time as well as difficulty getting her words out and and a small left facial droop. Speech and facial droop resolved after one minute per and left sided weakness improved but continued to have intermittent numbness of LUE over the next 20 minutes. brought patient to ED for further evaluation. No issues ambulating to car or walking into ER. Had a small amount of tingling in left hand upon initial arrival as well as dizziness and mild headache but denies any speech or swallowing issues or weakness at this time. No calf pain or swelling in extremities. No fever, chills, chest pain, palpitations, SOB, vomiting, abdominal pain, dysuria, diarrhea or constipation. No medical history other than palpitations as a teenager and episode of chest pain while in 2018, prompting cardiac evaluation at that time by Dr. Fong. TTE from Apr 2018 normal except for possible small patent foramen ovale. No stroke history in family but history of CAD and lupus. Patient is 9 months post- with second child and is nursing. Non-smoker. Not on OCPs. No recent travel or illness. Admission Exam Per Admitting Provider General Appearance:WD/WN, vitals as above, NAD, sitting up in bed, pleasant, conversing easily Head: normocephalic, atraumatic Eyes:normal inspection, PERRL, conjunctivae normal, anicteric sclerae ENT: external ear and nose normal, oropharynx normal Neck: normal visual inspection, trachea midline, no thyromegaly Respiratory:normal respiratory effort, lungs clear to auscultation, no wheeze, rales, rhonchi. No accessory muscle use Cardiovascular: regular rate, rhythm, no murmur, normal peripheral pulses, no BLE edema. Vessels: no JVD Chest: normal inspection of chest Abdomen/GI: normal bowel sounds, soft, nontender, no hepatosplenomegaly Extremities/Musculoskeletal: no cyanosis or clubbing, extremities motor strength 5/5 Neurologic: PERRL, EOMI, accommodation nl, no face palsy, no dysarthria, CN's II-XI intact bilaterally and moves all extremities, no ambulatory dysfunction Psychiatric:A+Ox3, euthymic affect Skin: no rashes, normal color, warm/dry Principal Diagnosis Acute CVA Discharge Exam General Appearance:young F in NAD Head: normocephalic, atraumatic Eyes:normal inspection, PERRL, EOMI, conjunctivae normal, anicteric sclerae ENT: external ear and nose normal, oropharynx normal Neck: normal visual inspection Respiratory:normal respiratory effort, lungs clear to auscultation, no wheeze, rales, rhonchi. No accessory muscle use Cardiovascular: regular rate, rhythm, no murmur, normal peripheral pulses, no BLE edema. Vessels: no JVD Chest: normal inspection of chest Abdomen/GI: normal bowel sounds, soft, nontender Extremities/Musculoskeletal:extremities motor strength 5/5 Neurologic: PERRL, EOMI, no face palsy, moves all extremities, no ambulatory dysfunction Psychiatric:A+Ox3, euthymic affect Skin: no rashes, normal color, warm/dry Discharge Data Allergies Allergy/AdvReac Type Severity Reaction Status Date / Time No Known Drug Allergies Allergy no Verified 06/30/21 13:02 allergies Consultations 06/30/21 13:40 ED Decision to Admit Stat 06/30/21 14:45 Consult Cardiology Routine 06/30/21 15:16 Consult Neurology Routine 06/30/21 15:32 Consult Anesthesiology Routine Procedures Performed Operation Date: 07/01/21 07:30 Actual Procedures p Echo Transesophageal - DO kali Muñoz Echo Doppler Complete - DO kali Muñoz Echo Color Flow - Baron Fong DO Ordered Studies 06/30/21 11:09 MR angio head wo con Stat IMPRESSION: No significant stenosis, occlusion, or aneurysm within the [place] of [place]. MR angio neck wo con Stat IMPRESSION: No significant stenosis, occlusion, or dissection identified within the carotid or vertebral arteries. MR brain wo con Stat FINDINGS: There is a small foci of restricted diffusion seen within the high convexity right frontal lobe on images 19 and 20 measuring 9 mm. This is consistent with a small acute infarct. The midline structures are intact. There is no mass, hematoma, midline shift. The major vascular flow-voids at the skull base are well-maintained. The orbits are unremarkable. Small retention cyst within the right sphenoid sinus and left maxillary sinus. The mastoid air cells are clear. IMPRESSION: A 9 mm focus of restricted diffusion within the right high convexity consistent with a small acute infarct. 06/30/21 14:24 US venous doppler LE BI Urgent IMPRESSION: No evidence of deep venous thrombus within the bilateral lower extremities. Hospital Course (1) Small vessel cerebrovascular accident (CVA): 30yo F with hx of a small PFO who presents with sudden onset left sided weakness and speech abnormality and was found to have an acute infarct in the right high frontal convexity. Developed LUE weakness, dysarthria in the AM of admission that has since fully resolved. Brain MRI confirms an acute infarct in the right high frontal convexity IMPRESSION: A 9 mm focus of restricted diffusion within the right high convexity consistent with a small acute infarct. Head/neck MRA with no acute restrictions in the head vascular on MRA Given aspirin in ED Vital signs stable, labs unremarkable, covid PCR negative, ECG with SR with sinus arrhythmia, no acute ischemic changes BLE venous dopplers to r/o DVTs - negative for DVT hypercoagulability panel - pending WHIT - reveals atrial septal aneurysm with a small to moderate PFO and mild right to left interatrial shunt. Discussed w/ cardiology Event occurred while on no antiplatelet therapy. Medical therapy options include anticoagulation or antiplatelet therapy. Given lack of DVT, proceed with ASA 81 mg daily and clopidogrel. Place 2 week Zio monitor as outpatient (likely tomorrow at [facility]) to evaluate for occult arrhythmia. Consult interventional / structural heart disease at [facility] as outpatient for consideration of percutaneous device closure. Discussed with neurology on admission as well - Dr. Iyer recommended to start dual antiplatelet therapy Patient will be discharged on aspirin and Plavix, for 21 days, then aspirin indefinitely she will follow-up with neurology as outpatient PCP: Dr. Castro Dispo: Plan to DC home Total Time Total Time Spent Total Time Spent (In Minutes): 40 Discharge Plan Discharge Items Patient Disposition: Home - Self-Care Reason For Visit: SMALL ACUTE INFARCT Discharge Diagnosis: Acute CVA Activity: Per Instructions section Non-emergency contact: Primary Care Provider, Certified Teacher Assistant and Neurologist Call non-emergency contact if: you have any medication questions and your symptoms worsen Follow-up/Referrals: Isrrael Castro [Primary Care Provider] - 07/05/21 9:00 am Diet: Regular Addtl Attending Provider Instructions: Follow-up with your primary care doctor, machine stoppage frequency checker, and neurologist. Appointment with your primary care doctor was scheduled for July 05. You will be contacted about your appointment with cardiology. It is recommended that you have a study done for arrhythmia, Zio patch, as well as consultation with structural machine stoppage frequency checker in [facility]. As discussed, take aspirin and Plavix for 21 days, then take aspirin alone indefinitely. Pending Studies at Discharge: Yes Studies:: Hypercoagulable work-up Stand-Alone Forms: Medications to Prevent Stroke, [facility] Prescription Eyewear, Smoking Cessation Medications and DC Order Prescriptions: New clopidogrel 75 mg Tablet 75 mg PO QAM Qty: 20 RF: 0 aspirin 81 mg Tablet,Delayed Release (Dr/Ec) 81 mg PO QAM Qty: 30 RF: 0 Discharge Orders: Discharge Order (Routine); Ordered 07/01/21 Ordered By: Giles Storey Admission Data Admit Date/Time: 06/30/21 13:28 Attending Provider: Giles Storey Admit Provider: Giles Storey Primary Care Provider: Isrrael Castro Other Providers: Ramsey Iyer ; Gabriel Sal ; Giles Storey ; Juana Morales ; Michelle Oneil ; Kaylen Wing ; Samantha Euceda ; Reggie Kumar ; Primitivo Ferguson ; Adrian Anderson ; Jayesh Pierson ; Bree Pierson ; Isrrael Glasgow ; Susan Castellano ; Shane Crowe ; Federico Lamb ; Kp Narvaez ; Wilfrido Talavera ; Kamla Panchal ; Segun Smith ; Barbara Garcia ; Genoveva Smith ; Ramsey Oscar ; Eliza Bahena ; Simon Curtis ; Kailyn Joshi ; Pili Anderson ; Eliza Quiles ; Ghada Rios ; Bhaskar eRa ; Mary Aguirre ; Emily Nguyễn ; Antoinette Bradford ; Kiana Sheth ; Radhames Sheth V ; Rehan Jacob ; Michelle Zavala ; Johnathan [place] ; [place] ; Haydee Mendez ; Radhames Ramires ; Slick Panchal ; Delonte Bhakta ; Katherine Cutler ; Modesta Walsh ; Radhames Lind ; Antoinette Ortiz ; Baron Torres ; Giorgi Talavera ; Lorie Sands ; Luis You ; Yelitza Doll ; Krishan Zaragoza ; Papi Pugh ; Luis Valenzuela ; Reggie Lockhart Jr ; Toyin Cormier
--- NOTE | 2021-07-01 15:57 | Pharmacy Report ---
Pharmacist Stroke Counseling - Date of Service July 01, 2021 - Scope: Pharmacy has been consulted to provide medication discharge counseling for this patient admitted with [ischemic stroke] [hemorrhagic stroke] [transient ischemic attack] as per the Pharmacist Discharge Counseling for Stroke Patients Prot ocol. - Medications on Discharge: New Rx's Medication Instructions Recorded aspirin 81 mg tablet,delayed 81 mg PO QAM #30 tab 07/01/21 release clopidogrel 75 mg tablet 75 mg PO QAM #20 tab 07/01/21 - Action: The above medications, specifically ones for stroke treatment/prophylaxis, have been reviewed in detail with the patient prior to discharge. This includes indication, common adverse reactions, drug interactions, and medication administration. Medication counseling has been employed using the teach-back method to ensure understanding. - Outcome: The patient have demonstrated understanding of the medications. Additional comments: -discussed recommendations with Plavix and aspirin. Patient wishes to continue -recommended to not keep medications in the medicine cupboard in bathroom Thank you for allowing pharmacy to be involved in the care of this patient. Please call [phone] with any additional questions
[2021-07-05 00:02] LABS: Factor 5 Mutation NEGATIVE
[2021-07-05 06:37] LABS: Anti Cardiolipin Ab IgG <2.0 GPL-U/mL; Anti Cardiolipin Ab IgM 3.9 MPL-U/mL; Anti-Thrombin III Activity 125 % normal (80-135); B2 Glycoprotein IgG <2.0 U/mL (<20.0); B2 Glycoprotein IgM 2.8 U/mL (<20.0); PTT LA Screen 36 sec (<=40); Protein S Functional(Activity) 91 % (60-140)
== END 2021-07-01 16:30 | disposition home or self-care (01) | DRG 65 ==
LOC: ED 10:54 → 2S 13:28

== ENCOUNTER 2022-05-14 20:24 | Observation (INO) ==
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
[2022-05-14] MEDS ORDERED: diphenhydrAMINE Capsule 25 MG CAP PO ONE ×2 (22:22→23:54)
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
== END 2022-05-15 10:10 | disposition home or self-care (01) ==
LOC: OPB 20:24 → 4S1 20:24

== ENCOUNTER 2022-08-25 16:45 | Inpatient (IN) ==
[2022-08-25] MEDS ORDERED: miSOPROStoL 25 MCG TAB PV ONE (17:07)
[2022-08-25] MEDS ORDERED: LIDOCAINE 1% LOCAL 20 ML VIAL INFIL PRN (17:07)
[2022-08-25] MEDS ORDERED: LACTATED RINGER'S 1,000 ML IV PRN (17:07)
[2022-08-25 17:48] LABS: Hematocrit (blood only) 33.9 % (37.0-47.0); Hemoglobin 11.2 g/dl (12.0-16.0); Mean Corpuscular Volume 81.7 fL (80.0-100.0); Mean Platelet Volume 9.8 fL (9.4-12.4); Platelet Count 295 K/uL (130-400); RDW Coefficient of Variation 14.9 % (11.5-14.5); RDW Standard Deviation 44.7 fL (36.4-46.3); Red Blood Count 4.15 M/uL (4.20-5.40); White Blood Count 11.23 K/ul (4.8-10.8)
--- NOTE | 2022-08-25 22:09 | History & Physical Report ---
Date of Service August 25, 2022 Assessment & Plan (1) Elevated BP without diagnosis of hypertension: Plan: Multip with favorable cervix and ongoing headache although blood pressures have remained in the normal range during observation in L&D. She has a history of rapid labors after AROM and since cervix is favorable she would like to move forward with IOL methods of IOL were reviewed. will start with vaginal cytotec then AROM She is requesting an unmedicated . Anticipate vaginal . (2) Gestational proteinuria: Admission and Anticipated Discharge Date Admission Date: August 25, 2022 History of Present Illness Primary Care Provider: Isrrael Castro Patient is a 31 yo female who was seen in the office for her routine OB visit at 39 3/7 weeks and was noted to have an elevated BP (146/88) and a headache that started 36 hours ago and was not relieved by tylenol. no visual changes or epigastric pain. PET labs were normal except for the protein/creatinine ratio which was elevated to 0.5. BP's were in the normal range during observation in L&D. GBS-negative Patient's history notable for a left sided stroke in 2019 as a result of a PFO. The PFO was repaired and she has had no sequelae from the stroke. she has been on low dose aspirin this as a result. Allergies Allergy/AdvReac Type Severity Reaction Status Date / Time No Known Drug Allergies Allergy no Verified 08/25/22 12:03 allergies Home Medications Medication Instructions Recorded Confirmed Type aspirin 81 mg tablet,delayed 81 mg PO QAM #30 tabs 07/01/21 08/25/22 Rx release prenat.vits,lorena,[id number] 1 tab PO DAILY 01/06/22 08/25/22 History sertraline 50 mg tablet (Zoloft) 75 mg PO DAILY 01/06/22 08/25/22 History Patient History Medical History Abnormal ultrasound Encounter for anatomic survey History of ovarian cyst ruptured- no surgery History of stroke Palpitations cardiac eval 04/28/2018; echo- small PFO Surgical History History of mandibular surgery S/P patent foramen ovale closure Family History Grandmother (Maternal) Heart disease CHF; pacemaker Hypertension Systemic lupus erythematosus Grandfather (Paternal) Heart disease h/o CAD, CABG, in 60's when chopping wood Mother Hypertension Grandfather (Maternal) Lung cancer Father Heart disease NSTEMI, age 62, [facility] branch of circumflex Prostate cancer Social History Smoking Status: Never smoker Second Hand Exposure: No; Hx Alcohol Use: No Hx Substance Use: No Preferred Language: Argentine Communication Ability: Effective Integrative Medicine Physician Required: No Beliefs That Will Affect Care: None marital status: marital status details: Bc (34)- [phone] Current Living Situation: Spouse Current Living Situation Comment: Spouse and 2 kids, 1 dog current occupational status: employed 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- [employer] Other Information That Helps Us Care for You: No Feels Safe at Home: Yes Safety Concerns: Feels Safe At This Time Assistive Devices: None Review of Systems All systems reviewed & are unremarkable except as noted in HPI & below Physical Exam Constitutional: WD/WN, vitals as above Psychiatric: A+Ox3, euthymic affect Genitourinary: OB Exam Abdomen: + vertex, + estimated weight (7-8 pounds) and + irregular contractions Manual OB Exam: + cervical dilation (2-3 cm), + cervical effacement 60% (soft) and + station -2 OB Exam Monitor Tracing: + external FHT monitor used, + external uterine monitor used, + category I and + normal FHT variability Results & Data ([facility]) Vital Signs (Past 12 Hours) Vital Signs Temp Pulse Resp BP O2 Del Method 08/25/22 17:43 97.9 F 90 18 133/79 Room Air 08/25/22 19:00 18 08/25/22 19:00 98.1 F 18 08/25/22 19:21 77 133/82 08/25/22 18:57 100 H 130/84 08/25/22 18:28 96 H 132/86 08/25/22 17:56 90 133/79 Code Status & VTE Plan VTE Prophylaxis Plan VTE Prophylaxis will be ordered: No Coding Level of Care Code None Diagnoses Elevated BP without diagnosis of hypertension R03.0 Gestational proteinuria O12.10
[2022-08-26] MEDS: OXYTOCIN 30 UNITS/500 ML BAG IV PRN ×2 (00:17→00:56)
--- NOTE | 2022-08-26 01:51 | Delivery Summary ---
Vaginal Delivery Summary Date of Service August 26, 2022 Vaginal Delivery Summary and 1st Degree LAC Patient is a 31-year-old 3 para 2-0-0-2 female who presents at 39-3/7 weeks for evaluation because of elevated blood pressure in the office. Her cervix was favorable and she received 1 dose of vaginal Cytotec. Patient desired an unmedicated . Membranes were ruptured for clear fluid and she progressed to full dilation with the urge to push. She pushed effectively over intact perineum for delivery of a viable female . After the head was delivered there was a mild shoulder dystocia present which was easily relieved with hyperflexion of the hips. Rest the delivered easily and was placed on the mother's abdomen for further attention and drying. She was vigorous and moving all 4 limbs. After 1 minute, cord was clamped and cut. After cord blood was obtained the placenta was expressed intact with a three-vessel cord. bleeding was controlled with dilute Pitocin and fundal massage. A first-degree perineal laceration was repaired with 3-0 chromic in the usual fashion. 1% lidocaine was used to anesthetize the laceration site. Estimated blood loss 200 cc. Mother and were doing well after delivery. MNP Vaginal Delivery Charge Delivery Type Details: and 1st Degree LAC
[2022-08-26] MEDS ORDERED: OXYTOCIN 30 UNITS/500 ML BAG IV PRN (02:55)
[2022-08-26] MEDS ORDERED: HYDROCORTISONE ACETATE 25 MG SUPP PR PRN (02:55)
[2022-08-26] MEDS ORDERED: DIPHTHERIA/TETANUS/PERTUSSIS 0.5mL SYR/VIAL (Age 7+yrs) IM ONE (02:55)
[2022-08-26] MEDS ORDERED: ACETAMINOPHEN 325 MG TAB PO PRN (02:55)
[2022-08-26] MEDS ORDERED: BENZOCAINE 20% AER SPR 82.5 GM CAN EXT PRN (02:55)
[2022-08-26] MEDS ORDERED: bisacodyL 10 MG SUPP PR PRN (02:55)
[2022-08-26] MEDS ORDERED: IBUPROFEN 600 MG TAB PO PRN (02:55)
[2022-08-26] MEDS ORDERED: oxyCODONE/ACETAMINOPHEN 5mg/325mg TAB PO PRN (02:55)
--- NOTE | 2022-08-26 07:39 | Obstetrical Progress Note ---
Date of Service August 26, 2022 Assessment & Plan (1) Encounter for care and examination after delivery: satisfactory exam BP's in normal range continue current care plan Subjective Ambulation: ambulating normally Voiding: no voiding problems Passing Gas:: Yes Diet Tolerance:: regular diet Lochia:: Small Feeding Type:: breast feeding Review of Systems All systems reviewed & are unremarkable except as noted in HPI & below Physical Exam Constitutional WD/WN, vitals as above Psychiatric A+Ox3, euthymic affect Genitourinary OB Exam Abdomen: + fundal height Fundus: + firm and + relation to umbilicus (at U) Results & Data ([facility]) Vital Signs (Past 12 Hours) Vital Signs Temp Pulse Pulse Resp BP BP Pulse Ox 08/26/22 03:45 97.7 F 94 H 18 121/74 97 08/26/22 02:35 98.2 F 18 08/26/22 02:05 18 08/26/22 01:35 18 08/26/22 01:20 18 08/26/22 01:05 18 08/26/22 00:50 18 08/26/22 00:35 98.2 F 18 08/26/22 02:34 100 H 138/71 08/26/22 02:22 101 H 151/70 H 08/26/22 02:07 108 H 150/72 H 08/26/22 01:52 105 H 150/75 H 08/26/22 01:37 143/86 H 08/26/22 01:22 93 H 142/81 H 08/26/22 01:07 98 H 137/77 08/26/22 00:57 88 138/71 08/26/22 00:37 104 H 135/86 08/25/22 22:19 18 08/25/22 22:19 98.1 F 18 08/25/22 22:22 85 133/85 O2 Del Method 08/26/22 03:45 Room Air 08/26/22 02:35 08/26/22 02:05 08/26/22 01:35 08/26/22 01:20 08/26/22 01:05 08/26/22 00:50 08/26/22 00:35 08/26/22 02:34 08/26/22 02:22 08/26/22 02:07 08/26/22 01:52 08/26/22 01:37 08/26/22 01:22 08/26/22 01:07 08/26/22 00:57 08/26/22 00:37 08/25/22 22:19 08/25/22 22:19 08/25/22 22:22
[2022-08-26] MEDS: SERTRALINE HCL 50 MG TABLET PO SCH (09:08)
[2022-08-26] MEDS: PRENATAL VITAMIN 1 TAB PO SCH (09:08)
[2022-08-26] MEDS: DOCUSATE SODIUM 100 MG CAP PO SCH ×2 (09:08→20:04)
[2022-08-27 02:19] VITALS: O2SAT 98
--- NOTE | 2022-08-27 05:39 | Obstetrical Progress Note ---
Date of Service August 27, 2022 Assessment & Plan (1) Encounter for care and examination after delivery: 31 y/o female at term presented with elevated BP and headache who proceeded with IOL now PPD1. Rh pos, GBS neg, RI. Satisfactory post progress. Tolerating PO. Encourage ambulation. Subjective Ambulation: ambulating normally Voiding: no voiding problems Passing Gas:: Yes Diet Tolerance:: regular diet Lochia:: Small Feeding Type:: bottle feeding Physical Exam Gen: well appearing female in NAD HEENT: AT NC Resp: no increased work of breathing CV: clinically well perfused : uterus firm non-tender at the level of the umbilicus Psych: appropriate mood and affect Neuro: alert and oriented Results & Data ([facility]) Vital Signs (Past 12 Hours) Vital Signs Temp Pulse Resp BP Pulse Ox O2 Del Method 08/27/22 01:30 36.6 C 72 16 114/72 98 Room Air 08/26/22 20:00 Room Air 08/26/22 20:04 36.6 C 97 H 18 118/78 96 Room Air Laboratory Results 08/25/22 17:15 Resident Activity Tracking Resident Involvement: Resident Care Provided Care Provided: OB Delivery
[2022-08-27 07:14] LABS: Hematocrit (blood only) 34.2 % (37.0-47.0); Hemoglobin 11.1 g/dl (12.0-16.0); Mean Corpuscular Hemoglobin 26.9 pg (25.0-34.0); Mean Corpuscular Hgb Conc 32.5 g/dL (32.0-36.0); Mean Corpuscular Volume 82.8 fL (80.0-100.0); Mean Platelet Volume 9.8 fL (9.4-12.4); Platelet Count 252 K/uL (130-400); RDW Coefficient of Variation 15.2 % (11.5-14.5); RDW Standard Deviation 45.8 fL (36.4-46.3); Red Blood Count 4.13 M/uL (4.20-5.40); White Blood Count 12.12 K/ul (4.8-10.8)
[2022-08-27] MEDS: PRENATAL VITAMIN 1 TAB PO SCH (08:20)
[2022-08-27] MEDS: SERTRALINE HCL 50 MG TABLET PO SCH (08:20)
[2022-08-27] MEDS: DOCUSATE SODIUM 100 MG CAP PO SCH (08:20)
[2022-08-27 10:30] VITALS: BP 127/79; PULSE 80; TEMP 97.3
[2022-08-27] MEDS ORDERED: bisacodyL 5 MG TABEC PO SCH (20:00)
== END 2022-08-27 13:15 | disposition home or self-care (01) | DRG 807 ==
LOC: 4S1 16:45 → 4E2 08-26 02:59